=== PATIENT | male | born 1945 ===

== ENCOUNTER 2020-10-05 14:26 | Inpatient (IN) | payer OTHER, SELFPAY ==
[2020-10-05] MEDS ORDERED: Digoxin 0.5 MG/2 ML AMP ONE (15:01)
[2020-10-05] MEDS ORDERED: Enoxaparin Sodium 80 MG/0.8 ML SYRINGE ONE (15:01)
[2020-10-05] MEDS ORDERED: cefTRIAXone\\ROCEPHIN 2 GM VIAL ONE (15:02)
[2020-10-05] MEDS ORDERED: Azithromycin 500 MG VIAL ONE (15:02)
[2020-10-05 15:19] LABS: #Monocytes 1.6 10x3/uL (0.0-1.1); #Neutrophils 16.7 10x3/uL (1.5-8.4); %Basophils 0.2 % (0.0-2.0); %Eosinophils 0.1 % (0.0-6.0); %Lymphocytes 5.2 % (18.0-47.0); %Neutrophils 85.6 % (40.0-75.0); Hemoglobin 9.3 g/dL (13.5-17.5); Mean Corpuscular HGB CONC 32.4 g/dL (32.0-36.0); Mean Corpuscular Hemoglobin 31.1 pg (27.0-33.0); Mean Platelet Volume 9.7 fl (7.4-10.4); Platelet Count 279 10x3/uL (150-450); RBC Distribution Width 17.1 % (11.5-14.5); Red Blood Cell (RBC) Count 2.99 10x6/uL (4.32-5.72); White Blood Cell (WBC) Count 19.6 10x3/uL (3.5-10.5)
[2020-10-05 15:32] LABS: ALT (SGPT) 17 U/L (8-55); AST (SGOT) 26 U/L (5-34); Albumin 2.2 g/dL (3.4-4.8); Alkaline Phosphatase 79 U/L (40-110); Anion Gap 10 mmol/L (10-20); BUN (Urea Nitrogen) 23 mg/dL (8.4-25.7); Bilirubin, Total 0.8 mg/dL (0.2-1.2); Calc. Creatinine Clearance 0 mL/min (70-130); Calcium 9.2 mg/dL (7.8-10.44); Carbon Dioxide 32 mmol/L (23-31); Chloride 97 mmol/L (98-107); Globulin 3.9 g/dL (2.4-3.5); Glucose 110 mg/dL (83-110); Potassium 3.3 mmol/L (3.5-5.1); Protein, Total 6.1 g/dL (5.8-8.1); Sodium 136 mmol/L (136-145)
[2020-10-05 15:45] LABS: INR-International Normal Ratio 1.4; PTT 30.7 sec (22.0-33.0)
[2020-10-05 17:14] LABS: SARS-CoV-2 NAA Rapid Test Not Detected (NotDetected)
[2020-10-05] MEDS ORDERED: Amiodarone In Dextrose 200 ML ONE (17:53)
[2020-10-05] MEDS ORDERED: Zolpidem Tartrate 5 MG TAB PO PRN (20:13)
[2020-10-05] MEDS ORDERED: Guaifenesin DM 100-10/5 ML UDCUP PO PRN (20:13)
[2020-10-05] MEDS ORDERED: Calcium Carbonate 500 MG ChewTAB PO PRN (20:13)
[2020-10-05] MEDS ORDERED: Senokot S 8.6-50 MG TAB PO PRN (20:13)
[2020-10-05] MEDS ORDERED: Ondansetron PF 4 MG/2 ML Vial IVP PRN (20:13)
[2020-10-05] MEDS ORDERED: Amiodarone 450 MG in Dextrose 5% in Water 250 ML IVPB SCH (20:30)
[2020-10-05] MEDS ORDERED: methylPREDNISolone Sod Succ/PF 125 MG/2 ML VIAL IVP SCH (20:30)
[2020-10-05] MEDS ORDERED: Potassium Chloride 20 MEQ TAB PO SCH (20:45)
[2020-10-05] MEDS ORDERED: Vancomycin HCl 1 GM in Sodium Chloride 0.9% 250 ML 250 ML IVPB SCH (21:00)
[2020-10-05] MEDS: Albumin 25% 25 GM/100 ML BOT IVPB SCH (21:20)
[2020-10-05] MEDS: Amiodarone In Dextrose 200 ML IVPB SCH (21:42)
[2020-10-05] MEDS: Famotidine/PF 20 mg/2ml Vial SLOW IVP SCH (21:45)
[2020-10-05] MEDS: guaiFENesin ER 600 MG TAB PO SCH (21:45)
[2020-10-05] MEDS: Nicotine 21 MG PATCH TD SCH (21:45)
[2020-10-05] MEDS ORDERED: Vancomycin HCl 750 MG in Sodium Chloride 0.9% 250 ML 250 ML IVPB SCH (22:00)
[2020-10-06 00:08] LABS: Legionella Urinary Ag Negative (Negative); Strep pneumo Urine Ag NEGATIVE (NEGATIVE)
[2020-10-06] MEDS: Piperacillin/Tazobactam 3.375 GM in Sodium Chloride 0.9% 100 ML IVPB SCH ×4 (00:08→19:12)
[2020-10-06] MEDS: Albumin 25% 25 GM/100 ML BOT IVPB SCH (02:45)
[2020-10-06 04:38] LABS: ALT (SGPT) 16 U/L (8-55); AST (SGOT) 17 U/L (5-34); Albumin 2.4 g/dL (3.4-4.8); Alkaline Phosphatase 78 U/L (40-110); Anion Gap 10 mmol/L (10-20); BUN (Urea Nitrogen) 20 mg/dL (8.4-25.7); Bilirubin, Total 0.4 mg/dL (0.2-1.2); Calc. Creatinine Clearance 100 mL/min (70-130); Calcium 9.2 mg/dL (7.8-10.44); Carbon Dioxide 28 mmol/L (23-31); Chloride 101 mmol/L (98-107); Globulin 3.5 g/dL (2.4-3.5); Glucose 123 mg/dL (83-110); Iron 9 ug/dL (65-175); Iron Binding Capacity, Total 105 mcg/dL (261-462); Magnesium 1.8 mg/dL (1.6-2.6); Protein, Total 5.9 g/dL (5.8-8.1); Sodium 135 mmol/L (136-145)
[2020-10-06 04:56] LABS: Ferritin 866.04 ng/mL (22-322)
[2020-10-06 06:10] LABS: #Monocytes 0.5 10x3/uL (0.0-1.1); #Neutrophils 19.3 10x3/uL (1.5-8.4); %Basophils 0.1 % (0.0-2.0); %Lymphocytes 1.7 % (18.0-47.0); %Monocytes 2.6 % (0.0-10.0); %Neutrophils 94.9 % (40.0-75.0); Hemoglobin 8.7 g/dL (13.5-17.5); Mean Corpuscular Hemoglobin 30.4 pg (27.0-33.0); Mean Corpuscular Volume 98.3 fl (81.2-95.1); Mean Platelet Volume 9.8 fl (7.4-10.4); Platelet Count 253 10x3/uL (150-450); RBC Distribution Width 17.2 % (11.5-14.5); Red Blood Cell (RBC) Count 2.86 10x6/uL (4.32-5.72); White Blood Cell (WBC) Count 20.4 10x3/uL (3.5-10.5)
[2020-10-06] MEDS: methylPREDNISolone Sod Succ 40 MG VIAL IVP SCH ×3 (06:12→18:42)
[2020-10-06] MEDS: Amiodarone In Dextrose 200 ML IVPB SCH (06:13)
[2020-10-06] MEDS: Budesonide 0.5 MG/2 ML NEB NEB SCH ×2 (07:35→20:36)
[2020-10-06] MEDS: Famotidine/PF 20 mg/2ml Vial SLOW IVP SCH ×2 (08:05→21:42)
[2020-10-06] MEDS: Enoxaparin Sodium 80 MG/0.8 ML SYRINGE SC SCH ×2 (08:05→21:41)
[2020-10-06] MEDS: guaiFENesin ER 600 MG TAB PO SCH ×2 (08:06→23:08)
[2020-10-06] MEDS ORDERED: Ziprasidone 20 MG VIAL ONE (14:53)
[2020-10-06] MEDS ORDERED: Sterile Water 10 ML VIAL FS SCH (15:00)
[2020-10-06] MEDS ORDERED: Ziprasidone 20 MG VIAL IM SCH (15:00)
[2020-10-06] MEDS ORDERED: Amiodarone 200 MG TAB PO SCH (15:00)
[2020-10-06] MEDS ORDERED: Furosemide 40 MG/4 ML VIAL SLOW IVP SCH (15:30)
[2020-10-06] MEDS ORDERED: Azithromycin 500 MG in Sodium Chloride 0.9% 250 ML 250 ML IVPB SCH (17:00)
[2020-10-06] MEDS ORDERED: Lorazepam 2 MG/ML VIAL SLOW IVP SCH (20:45)
[2020-10-06] MEDS ORDERED: Digoxin 0.5 MG/2 ML AMP ONE (21:34)
[2020-10-06] MEDS: Nicotine 21 MG PATCH TD SCH (21:41)
[2020-10-06] MEDS: VANCOMYCIN 1.75 GM/350 ML BAG 1.75 GM in Premix Bag 1 BAG IVPB SCH (21:42)
[2020-10-07] MEDS: methylPREDNISolone Sod Succ 40 MG VIAL IVP SCH ×5 (00:13→23:41)
[2020-10-07] MEDS: Piperacillin/Tazobactam 3.375 GM in Sodium Chloride 0.9% 100 ML IVPB SCH ×4 (00:13→23:00)
[2020-10-07] MEDS ORDERED: Metoprolol Tartrate 5 MG/5 ML VIAL IVP SCH (04:15)
[2020-10-07] MEDS ORDERED: Digoxin 0.5 MG/2 ML AMP SLOW IVP SCH (04:15)
[2020-10-07] MEDS: Amiodarone 200 MG TAB PO SCH ×3 (06:25→20:23)
[2020-10-07] MEDS: Budesonide 0.5 MG/2 ML NEB NEB SCH ×2 (07:48→19:57)
[2020-10-07] MEDS: Enoxaparin Sodium 80 MG/0.8 ML SYRINGE SC SCH ×2 (08:29→20:51)
[2020-10-07] MEDS: Famotidine/PF 20 mg/2ml Vial SLOW IVP SCH ×2 (08:29→20:51)
[2020-10-07] MEDS: Furosemide 40 MG/4 ML VIAL SLOW IVP SCH (08:29)
[2020-10-07] MEDS: guaiFENesin ER 600 MG TAB PO SCH ×3 (08:30→20:27)
[2020-10-07] MEDS: Amiodarone 450 MG in Dextrose 5% in Water 250 ML IVPB SCH ×2 (15:36→21:35)
[2020-10-07] MEDS: OLANZapine 5 MG TAB PO PRN (19:14)
[2020-10-07 20:43] LABS: Vancomycin, Trough 10.4 ug/mL
[2020-10-07] MEDS: Lorazepam 2 MG/ML VIAL SLOW IVP PRN (20:51)
[2020-10-07] MEDS: Nicotine 21 MG PATCH TD SCH (20:51)
[2020-10-07] MEDS: VANCOMYCIN 1.75 GM/350 ML BAG 1.75 GM in Premix Bag 1 BAG IVPB SCH (20:52)
[2020-10-08] MEDS: Piperacillin/Tazobactam 3.375 GM in Sodium Chloride 0.9% 100 ML IVPB SCH ×3 (05:24→22:00)
[2020-10-08] MEDS: Lorazepam 2 MG/ML VIAL SLOW IVP PRN ×2 (05:29→08:48)
[2020-10-08] MEDS: methylPREDNISolone Sod Succ 40 MG VIAL IVP SCH ×3 (05:29→17:02)
[2020-10-08] MEDS: Enoxaparin Sodium 80 MG/0.8 ML SYRINGE SC SCH ×2 (08:02→20:53)
[2020-10-08] MEDS: Furosemide 40 MG/4 ML VIAL SLOW IVP SCH (08:03)
[2020-10-08] MEDS: Famotidine/PF 20 mg/2ml Vial SLOW IVP SCH ×2 (08:03→20:53)
[2020-10-08] MEDS: Budesonide 0.5 MG/2 ML NEB NEB SCH ×2 (08:20→18:47)
[2020-10-08] MEDS: Amiodarone 200 MG TAB PO SCH ×2 (08:31→19:49)
[2020-10-08] MEDS: guaiFENesin ER 600 MG TAB PO SCH ×2 (08:31→19:50)
[2020-10-08] MEDS ORDERED: Vancomycin HCl 750 MG in Sodium Chloride 0.9% 250 ML 250 ML IVPB SCH ×2 (09:00→21:00)
[2020-10-08] MEDS ORDERED: VANCOMYCIN 1.25 GM/250 ML BAG 1.25 GM in Premix Bag 1 BAG IVPB SCH (09:00)
[2020-10-08] MEDS ORDERED: Vancomycin HCl 500 MG in Sodium Chloride 0.9% 100 ML IVPB SCH ×2 (10:00→22:00)
[2020-10-08] MEDS ORDERED: Dexmedetomidine In 0.9 % NaCl 100 ML IVPB SCH (11:30)
[2020-10-08] MEDS: Amiodarone In Dextrose 200 ML IVPB SCH (16:02)
[2020-10-08] MEDS: Nicotine 21 MG PATCH TD SCH (20:54)
[2020-10-09] MEDS: methylPREDNISolone Sod Succ 40 MG VIAL IVP SCH ×3 (03:00→14:05)
[2020-10-09 04:24] LABS: #Monocytes 0.8 10x3/uL (0.0-1.1); #Neutrophils 17.3 10x3/uL (1.5-8.4); %Basophils 0.1 % (0.0-2.0); %Lymphocytes 4.1 % (18.0-47.0); %Monocytes 4.3 % (0.0-10.0); %Neutrophils 90.6 % (40.0-75.0); Hemoglobin 10.7 g/dL (13.5-17.5); Mean Corpuscular HGB CONC 30.4 g/dL (32.0-36.0); Mean Corpuscular Hemoglobin 30.4 pg (27.0-33.0); Mean Platelet Volume 11.6 fl (7.4-10.4); Platelet Count 146 10x3/uL (150-450); Red Blood Cell (RBC) Count 3.52 10x6/uL (4.32-5.72)
[2020-10-09 04:34] LABS: BUN (Urea Nitrogen) 29 mg/dL (8.4-25.7); Calc. Creatinine Clearance 99 mL/min (70-130); Calcium 9.6 mg/dL (7.8-10.44); Glucose 110 mg/dL (83-110)
[2020-10-09 04:41] LABS: Anion Gap 14 mmol/L (10-20); Carbon Dioxide 34 mmol/L (23-31); Chloride 98 mmol/L (98-107); Potassium 3.3 mmol/L (3.5-5.1); Sodium 143 mmol/L (136-145)
[2020-10-09] MEDS: Budesonide 0.5 MG/2 ML NEB NEB SCH ×2 (07:46→19:30)
[2020-10-09] MEDS: Piperacillin/Tazobactam 3.375 GM in Sodium Chloride 0.9% 100 ML IVPB SCH ×3 (08:01→22:33)
[2020-10-09] MEDS: Enoxaparin Sodium 80 MG/0.8 ML SYRINGE SC SCH ×2 (09:32→20:22)
[2020-10-09] MEDS: VANCOMYCIN 1.25 GM/250 ML BAG 1.25 GM in Premix Bag 1 BAG IVPB SCH ×3 (09:33→22:32)
[2020-10-09] MEDS: Amiodarone 200 MG TAB PO SCH ×2 (09:33→19:18)
[2020-10-09] MEDS: Furosemide 40 MG/4 ML VIAL SLOW IVP SCH (09:33)
[2020-10-09] MEDS: Famotidine/PF 20 mg/2ml Vial SLOW IVP SCH ×2 (09:33→20:39)
[2020-10-09] MEDS: guaiFENesin ER 600 MG TAB PO SCH ×2 (09:33→19:18)
[2020-10-09] MEDS ORDERED: Midazolam HCl 2 mg/2 ml Vial SLOW IVP SCH (11:00)
[2020-10-09] MEDS: Amiodarone In Dextrose 200 ML IVPB SCH (14:06)
[2020-10-09] MEDS: Nicotine 21 MG PATCH TD SCH (20:39)
[2020-10-09 22:27] LABS: Vancomycin, Trough 29.3 ug/mL
[2020-10-10 04:20] LABS: #Monocytes 1.3 10x3/uL (0.0-1.1); #Neutrophils 14.3 10x3/uL (1.5-8.4); %Basophils 0.1 % (0.0-2.0); %Lymphocytes 5.5 % (18.0-47.0); %Monocytes 7.7 % (0.0-10.0); %Neutrophils 86.1 % (40.0-75.0); Hemoglobin 10.2 g/dL (13.5-17.5); Mean Corpuscular HGB CONC 30.8 g/dL (32.0-36.0); Mean Corpuscular Hemoglobin 29.8 pg (27.0-33.0); Mean Corpuscular Volume 96.8 fl (81.2-95.1); Platelet Count 127 10x3/uL (150-450); RBC Distribution Width 16.8 % (11.5-14.5); Red Blood Cell (RBC) Count 3.42 10x6/uL (4.32-5.72); White Blood Cell (WBC) Count 16.6 10x3/uL (3.5-10.5)
[2020-10-10 04:39] LABS: BUN (Urea Nitrogen) 24 mg/dL (8.4-25.7); Calc. Creatinine Clearance 103 mL/min (70-130); Calcium 8.8 mg/dL (7.8-10.44); Glucose 104 mg/dL (83-110); Vancomycin, Random 18.9 ug/mL (See Comment)
[2020-10-10 04:45] LABS: Potassium 2.8 mmol/L (3.5-5.1)
[2020-10-10 04:46] LABS: Anion Gap 15 mmol/L (10-20); Carbon Dioxide 36 mmol/L (23-31); Chloride 95 mmol/L (98-107); Sodium 143 mmol/L (136-145)
[2020-10-10] MEDS: Piperacillin/Tazobactam 3.375 GM in Sodium Chloride 0.9% 100 ML IVPB SCH (05:26)
[2020-10-10] MEDS: Potassium Chloride 20 MEQ in Premix Bag 1 BAG IVPB SCH ×4 (05:26→15:10)
[2020-10-10] MEDS: Budesonide 0.5 MG/2 ML NEB NEB SCH ×2 (07:44→18:56)
[2020-10-10] MEDS: Enoxaparin Sodium 80 MG/0.8 ML SYRINGE SC SCH ×2 (08:42→21:06)
[2020-10-10] MEDS: Furosemide 40 MG/4 ML VIAL SLOW IVP SCH (08:42)
[2020-10-10] MEDS: guaiFENesin ER 600 MG TAB PO SCH ×2 (08:43→21:13)
[2020-10-10] MEDS: Amiodarone 200 MG TAB PO SCH ×2 (08:43→20:59)
[2020-10-10] MEDS: Famotidine/PF 20 mg/2ml Vial SLOW IVP SCH ×2 (08:43→21:03)
[2020-10-10] MEDS ORDERED: VANCOMYCIN 1.25 GM/250 ML BAG 1.25 GM in Premix Bag 1 BAG IVPB SCH (09:00)
[2020-10-10] MEDS ORDERED: methylPREDNISolone Sod Succ 40 MG VIAL IVP SCH (09:00)
[2020-10-10] MEDS ORDERED: Vancomycin HCl 1 GM in Sodium Chloride 0.9% 250 ML 250 ML IVPB SCH (09:00)
[2020-10-10] MEDS: Amiodarone In Dextrose 200 ML IVPB SCH (15:10)
[2020-10-10] MEDS: Nicotine 21 MG PATCH TD SCH (21:20)
[2020-10-11 04:25] LABS: #Monocytes 1.3 10x3/uL (0.0-1.1); %Basophils 0.1 % (0.0-2.0); %Eosinophils 0.1 % (0.0-6.0); %Lymphocytes 7.2 % (18.0-47.0); %Monocytes 7.5 % (0.0-10.0); %Neutrophils 84.5 % (40.0-75.0); Hemoglobin 10.7 g/dL (13.5-17.5); Mean Corpuscular HGB CONC 31.4 g/dL (32.0-36.0); Mean Corpuscular Hemoglobin 30.7 pg (27.0-33.0); Mean Platelet Volume 12.4 fl (7.4-10.4); Platelet Count 104 10x3/uL (150-450); RBC Distribution Width 17.5 % (11.5-14.5); Red Blood Cell (RBC) Count 3.48 10x6/uL (4.32-5.72); White Blood Cell (WBC) Count 16.6 10x3/uL (3.5-10.5)
[2020-10-11 04:40] LABS: BUN (Urea Nitrogen) 23 mg/dL (8.4-25.7); Calc. Creatinine Clearance 93 mL/min (70-130); Calcium 8.7 mg/dL (7.8-10.44); Glucose 103 mg/dL (83-110)
[2020-10-11 04:46] LABS: Anion Gap 13 mmol/L (10-20); Carbon Dioxide 39 mmol/L (23-31); Chloride 94 mmol/L (98-107); Sodium 143 mmol/L (136-145)
[2020-10-11] MEDS: Budesonide 0.5 MG/2 ML NEB NEB SCH ×2 (08:00→19:20)
[2020-10-11] MEDS: Famotidine/PF 20 mg/2ml Vial SLOW IVP SCH ×2 (08:23→20:50)
[2020-10-11] MEDS: Furosemide 40 MG/4 ML VIAL SLOW IVP SCH (08:23)
[2020-10-11] MEDS: Amiodarone 200 MG TAB PO SCH ×2 (08:24→20:49)
[2020-10-11] MEDS: guaiFENesin ER 600 MG TAB PO SCH ×2 (08:24→20:50)
[2020-10-11] MEDS: Enoxaparin Sodium 80 MG/0.8 ML SYRINGE SC SCH ×2 (08:24→20:49)
[2020-10-11] MEDS ORDERED: Dexmedetomidine In 0.9 % NaCl 100 ML IVPB SCH (10:15)
[2020-10-11] MEDS ORDERED: Dexmedetomidine In 0.9 % NaCl 100 ML ONE (10:24)
[2020-10-11 12:49] LABS: Actual Bicarbonate (HCO3a) 48.9 mEq/L (22-28); Base Excess (BEa) 22.4 mEq/L (-2.0 to +3.0); Calcium, Ionized (arterial) 1.17 mmol/L (1.12-1.30); Carboxyhemoglobin (COHb) 0.5 gm% (0.0-3.0); Hemoglobin (Hb) 11.8 g/dL (14.0-18.0); O2 Tension (PaO2), arterial 84.3 mmHg (> 70.0); Potassium - ABG Lab 2.7 mmol/L (3.70-5.30); Puncture Site RRA; pH, Arterial 7.51 (7.35-7.45)
[2020-10-11] MEDS ORDERED: Potassium Chloride 20 MEQ in Premix Bag 1 BAG IVPB SCH (14:00)
[2020-10-11] MEDS ORDERED: Albumin 25% 25 GM/100 ML BOT IVPB SCH (19:30)
[2020-10-11] MEDS: Nicotine 21 MG PATCH TD SCH (20:50)
[2020-10-11] MEDS: OLANZapine 5 MG TAB PO PRN (20:50)
[2020-10-11 21:25] LABS: Vancomycin, Trough 6.2 ug/mL
[2020-10-11] MEDS ORDERED: Albumin 25% 25 GM/100 ML BOT IVPB PRN (22:59)
[2020-10-12 04:26] LABS: #Eosinphils 0.1 10x3/uL (0.0-0.5); #Neutrophils 12.3 10x3/uL (1.5-8.4); %Basophils 0.2 % (0.0-2.0); %Eosinophils 0.6 % (0.0-6.0); %Lymphocytes 10.4 % (18.0-47.0); %Monocytes 6.3 % (0.0-10.0); %Neutrophils 81.6 % (40.0-75.0); Hemoglobin 10.4 g/dL (13.5-17.5); Mean Corpuscular HGB CONC 30.4 g/dL (32.0-36.0); Mean Corpuscular Hemoglobin 29.5 pg (27.0-33.0); Mean Corpuscular Volume 97.2 fl (81.2-95.1); Mean Platelet Volume 12.5 fl (7.4-10.4); Platelet Count 94 10x3/uL (150-450); RBC Distribution Width 17.4 % (11.5-14.5); Red Blood Cell (RBC) Count 3.52 10x6/uL (4.32-5.72)
[2020-10-12 04:32] LABS: BUN (Urea Nitrogen) 22 mg/dL (8.4-25.7); Calc. Creatinine Clearance 99 mL/min (70-130); Glucose 114 mg/dL (83-110)
[2020-10-12 04:39] LABS: Anion Gap 15 mmol/L (10-20); Carbon Dioxide 35 mmol/L (23-31); Potassium 3.2 mmol/L (3.5-5.1); Sodium 142 mmol/L (136-145)
[2020-10-12 04:42] LABS: Chloride 95 mmol/L (98-107)
[2020-10-12] MEDS: Budesonide 0.5 MG/2 ML NEB NEB SCH ×2 (07:20→20:13)
[2020-10-12] MEDS: Enoxaparin Sodium 80 MG/0.8 ML SYRINGE SC SCH ×2 (09:24→22:00)
[2020-10-12] MEDS: Famotidine/PF 20 mg/2ml Vial SLOW IVP SCH ×2 (09:24→22:00)
[2020-10-12] MEDS: Amiodarone 200 MG TAB PO SCH ×2 (09:24→22:00)
[2020-10-12] MEDS: guaiFENesin ER 600 MG TAB PO SCH ×2 (09:24→22:00)
[2020-10-12] MEDS: Polyethylene Glycol 3350 17 GM Packet PO SCH (09:26)
[2020-10-12 15:07] LABS: Bilirubin Neg (Negative); Blood, Urine 250 (Negative); Clarity Cloudy (Clear); Glucose, Urine (Dipstick) Normal (Negative); Ketone, Urine Negative (Negative); Leukocyte 100 (Negative); Nitrite Negative (Negative); Protein, Urine (Dipstick) 30 mg/dl (Neg-Trace); Urobilinogen Normal mg/dL (Less than 2)
[2020-10-12 15:09] LABS: Urine Culture Reflex No No
[2020-10-12 15:26] LABS: RBC/HPF Greater than 50 HPF (0-3)
[2020-10-12 15:27] LABS: Bacteria/HPF 1+ HPF (None Seen); Red Blood Cell Cast 0-3 LPF (None Seen); Squamous Epithelial 0-3 HPF (0-3)
[2020-10-12] MEDS ORDERED: Digoxin 0.5 MG/2 ML AMP SLOW IVP SCH (15:45)
[2020-10-12] MEDS: Nicotine 21 MG PATCH TD SCH (22:00)
[2020-10-13 03:41] LABS: #Eosinphils 0.1 10x3/uL (0.0-0.5); #Monocytes 0.8 10x3/uL (0.0-1.1); #Neutrophils 14.1 10x3/uL (1.5-8.4); %Basophils 0.1 % (0.0-2.0); %Eosinophils 0.8 % (0.0-6.0); %Lymphocytes 8.1 % (18.0-47.0); %Neutrophils 85.5 % (40.0-75.0); Hemoglobin 10.2 g/dL (13.5-17.5); Mean Corpuscular HGB CONC 31.3 g/dL (32.0-36.0); Mean Corpuscular Hemoglobin 30.7 pg (27.0-33.0); Mean Corpuscular Volume 98.2 fl (81.2-95.1); Mean Platelet Volume 11.8 fl (7.4-10.4); Platelet Count 91 10x3/uL (150-450); RBC Distribution Width 17.2 % (11.5-14.5); Red Blood Cell (RBC) Count 3.32 10x6/uL (4.32-5.72); White Blood Cell (WBC) Count 16.5 10x3/uL (3.5-10.5)
[2020-10-13 03:50] LABS: Anion Gap 11 mmol/L (10-20); BUN (Urea Nitrogen) 23 mg/dL (8.4-25.7); Calc. Creatinine Clearance 91 mL/min (70-130); Calcium 8.7 mg/dL (7.8-10.44); Carbon Dioxide 37 mmol/L (23-31); Chloride 99 mmol/L (98-107); Glucose 126 mg/dL (83-110); Potassium 3.3 mmol/L (3.5-5.1); Sodium 144 mmol/L (136-145)
[2020-10-13 04:48] LABS: ALV-art Gradient 69.385 mmHg (0-20); Actual Bicarbonate (HCO3a) 36.9 mEq/L (22-28); Base Excess (BEa) 10.7 mEq/L (-2.0 to +3.0); CO2 Tension 57.5 mmHg (35.0-45.0); Calcium, Ionized (arterial) 1.21 mmol/L (1.12-1.30); Carboxyhemoglobin (COHb) 0.6 gm% (0.0-3.0); O2 Tension (PaO2), arterial 86.9 mmHg (> 70.0); Potassium - ABG Lab 3.3 mmol/L (3.70-5.30); Puncture Site RRA; pH, Arterial 7.43 (7.35-7.45)
[2020-10-13] MEDS: Budesonide 0.5 MG/2 ML NEB NEB SCH ×2 (07:39→20:02)
[2020-10-13] MEDS: Enoxaparin Sodium 80 MG/0.8 ML SYRINGE SC SCH ×2 (07:50→21:59)
[2020-10-13] MEDS: Famotidine/PF 20 mg/2ml Vial SLOW IVP SCH ×2 (07:50→21:59)
[2020-10-13] MEDS: Digoxin 0.5 MG/2 ML AMP SLOW IVP SCH (07:51)
[2020-10-13] MEDS: guaiFENesin ER 600 MG TAB PO SCH ×2 (07:51→21:59)
[2020-10-13] MEDS: Amiodarone 200 MG TAB PO SCH ×2 (07:51→21:59)
[2020-10-13] MEDS: Polyethylene Glycol 3350 17 GM Packet PO SCH (07:52)
[2020-10-13] MEDS ORDERED: Sodium Chloride 0.9% 500 ML IV SCH (10:15)
[2020-10-13] MEDS ORDERED: Electrolyte Replacement Protocol 1 EACH FS ONE (10:15)
[2020-10-13] MEDS ORDERED: Electrolyte Replacement Protocol FS PRN (10:30)
[2020-10-13] MEDS ORDERED: Albumin 25% 25 GM/100 ML BOT IVPB PRN (10:39)
[2020-10-13] MEDS ORDERED: VANCOMYCIN 1.25 GM/250 ML BAG 1.25 GM in Premix Bag 1 BAG IVPB SCH (11:00)
[2020-10-13] MEDS ORDERED: Magnesium 2 GM/50 ML 2 GM in Premix Bag 1 BAG IVPB SCH (12:30)
[2020-10-13] MEDS ORDERED: Potassium Chloride 20 MEQ TAB PO SCH (12:30)
[2020-10-13] MEDS: Nicotine 21 MG PATCH TD SCH (21:59)
[2020-10-13] MEDS: Vancomycin HCl 1 GM in Sodium Chloride 0.9% 250 ML 250 ML IVPB SCH (23:13)
[2020-10-14 04:42] LABS: #Eosinphils 0.2 10x3/uL (0.0-0.5); #Monocytes 0.9 10x3/uL (0.0-1.1); #Neutrophils 15.2 10x3/uL (1.5-8.4); %Basophils 0.1 % (0.0-2.0); %Eosinophils 1.1 % (0.0-6.0); %Lymphocytes 6.8 % (18.0-47.0); %Monocytes 5.2 % (0.0-10.0); Hemoglobin 9.7 g/dL (13.5-17.5); Mean Corpuscular HGB CONC 30.1 g/dL (32.0-36.0); Mean Corpuscular Hemoglobin 30.2 pg (27.0-33.0); Mean Corpuscular Volume 100.3 fl (81.2-95.1); Mean Platelet Volume 12.3 fl (7.4-10.4); Platelet Count 107 10x3/uL (150-450); RBC Distribution Width 17.8 % (11.5-14.5); Red Blood Cell (RBC) Count 3.21 10x6/uL (4.32-5.72); White Blood Cell (WBC) Count 17.6 10x3/uL (3.5-10.5)
[2020-10-14 04:58] LABS: Anion Gap 13 mmol/L (10-20); BUN (Urea Nitrogen) 30 mg/dL (8.4-25.7); Calc. Creatinine Clearance 89 mL/min (70-130); Calcium 8.8 mg/dL (7.8-10.44); Carbon Dioxide 36 mmol/L (23-31); Chloride 104 mmol/L (98-107); Glucose 142 mg/dL (83-110); Potassium 3.6 mmol/L (3.5-5.1); Sodium 149 mmol/L (136-145)
[2020-10-14] MEDS: Budesonide 0.5 MG/2 ML NEB NEB SCH ×2 (06:54→19:18)
[2020-10-14] MEDS: Amiodarone 200 MG TAB PO SCH ×2 (10:05→20:25)
[2020-10-14] MEDS: Famotidine/PF 20 mg/2ml Vial SLOW IVP SCH ×2 (10:05→20:25)
[2020-10-14] MEDS: Enoxaparin Sodium 80 MG/0.8 ML SYRINGE SC SCH ×2 (10:05→20:25)
[2020-10-14] MEDS: guaiFENesin ER 600 MG TAB PO SCH ×2 (10:05→20:25)
[2020-10-14] MEDS: Digoxin 0.5 MG/2 ML AMP SLOW IVP SCH (10:05)
[2020-10-14 10:31] LABS: Vancomycin, Trough 11.4 ug/mL
[2020-10-14] MEDS ORDERED: Piperacillin/Tazobactam 3.375 GM in Sodium Chloride 0.9% 100 ML IVPB SCH ×2 (12:00→16:00)
[2020-10-14] MEDS: Polyethylene Glycol 3350 17 GM Packet PO SCH (12:08)
[2020-10-14] MEDS: Vancomycin HCl 1 GM in Sodium Chloride 0.9% 250 ML 250 ML IVPB SCH (12:16)
[2020-10-14] MEDS: Lorazepam 2 MG/ML VIAL SLOW IVP PRN (14:16)
[2020-10-14] MEDS: Nicotine 21 MG PATCH TD SCH (20:34)
[2020-10-15] MEDS: Vancomycin HCl 1 GM in Sodium Chloride 0.9% 250 ML 250 ML IVPB SCH ×2 (00:20→10:50)
[2020-10-15] MEDS: Lorazepam 2 MG/ML VIAL SLOW IVP PRN (00:52)
[2020-10-15] MEDS ORDERED: Piperacillin/Tazobactam 3.375 GM in Sodium Chloride 0.9% 100 ML IVPB SCH (03:00)
[2020-10-15 04:32] LABS: #Eosinphils 0.1 10x3/uL (0.0-0.5); #Monocytes 1.1 10x3/uL (0.0-1.1); #Neutrophils 15.9 10x3/uL (1.5-8.4); %Basophils 0.2 % (0.0-2.0); %Eosinophils 0.7 % (0.0-6.0); %Lymphocytes 7.2 % (18.0-47.0); %Monocytes 5.6 % (0.0-10.0); %Neutrophils 85.4 % (40.0-75.0); Hemoglobin 9.9 g/dL (13.5-17.5); Mean Corpuscular HGB CONC 30.4 g/dL (32.0-36.0); Mean Corpuscular Hemoglobin 30.2 pg (27.0-33.0); Mean Corpuscular Volume 99.4 fl (81.2-95.1); Mean Platelet Volume 11.5 fl (7.4-10.4); Platelet Count 126 10x3/uL (150-450); RBC Distribution Width 17.7 % (11.5-14.5); Red Blood Cell (RBC) Count 3.28 10x6/uL (4.32-5.72); White Blood Cell (WBC) Count 18.7 10x3/uL (3.5-10.5)
[2020-10-15 04:45] LABS: Anion Gap 9 mmol/L (10-20); BUN (Urea Nitrogen) 28 mg/dL (8.4-25.7); Calc. Creatinine Clearance 92 mL/min (70-130); Calcium 8.8 mg/dL (7.8-10.44); Carbon Dioxide 37 mmol/L (23-31); Chloride 108 mmol/L (98-107); Glucose 133 mg/dL (83-110); Potassium 3.5 mmol/L (3.5-5.1); Sodium 150 mmol/L (136-145)
[2020-10-15] MEDS: Budesonide 0.5 MG/2 ML NEB NEB SCH ×2 (06:59→19:07)
[2020-10-15] MEDS: Famotidine/PF 20 mg/2ml Vial SLOW IVP SCH ×2 (08:44→20:15)
[2020-10-15] MEDS: guaiFENesin ER 600 MG TAB PO SCH ×2 (08:44→20:15)
[2020-10-15] MEDS: Enoxaparin Sodium 80 MG/0.8 ML SYRINGE SC SCH ×2 (08:44→20:14)
[2020-10-15] MEDS: Amiodarone 200 MG TAB PO SCH ×3 (08:45→20:14)
[2020-10-15] MEDS: Digoxin 0.5 MG/2 ML AMP SLOW IVP SCH (08:45)
[2020-10-15] MEDS: Polyethylene Glycol 3350 17 GM Packet PO SCH (08:46)
[2020-10-15] MEDS ORDERED: Potassium Chloride 20 MEQ TAB PO SCH (09:30)
[2020-10-15 10:47] LABS: Vancomycin, Trough 15.3 ug/mL
[2020-10-15] MEDS: Piperacillin/Tazobactam 3.375 GM in Sodium Chloride 0.9% 100 ML IVPB SCH ×2 (11:36→20:13)
[2020-10-15] MEDS: Dextrose 5% in Water 1,000 ML IV SCH (16:52)
[2020-10-15] MEDS: Nicotine 21 MG PATCH TD SCH (20:15)
[2020-10-16] MEDS: Vancomycin HCl 1 GM in Sodium Chloride 0.9% 250 ML 250 ML IVPB SCH (00:21)
[2020-10-16] MEDS: Piperacillin/Tazobactam 3.375 GM in Sodium Chloride 0.9% 100 ML IVPB SCH (04:10)
[2020-10-16 04:20] LABS: Hemoglobin 8.7 g/dL (13.5-17.5); Mean Corpuscular HGB CONC 29.7 g/dL (32.0-36.0); Mean Corpuscular Hemoglobin 29.9 pg (27.0-33.0); Mean Corpuscular Volume 100.7 fl (81.2-95.1); Platelet Count 131 10x3/uL (150-450); RBC Distribution Width 17.8 % (11.5-14.5); Red Blood Cell (RBC) Count 2.91 10x6/uL (4.32-5.72); White Blood Cell (WBC) Count 23.9 10x3/uL (3.5-10.5)
[2020-10-16 04:29] LABS: MDiff Complete? YES
[2020-10-16 04:31] LABS: Eosinophils 1 % (0-10); Lymphocytes 5 % (21-51); Monocytes 3 % (0-10); Neutrophil 91 % (42-75)
[2020-10-16 04:32] LABS: Hypochromia SLIGHT = 6-15 cells (100X) (0-5/hpf)
[2020-10-16 04:52] LABS: Anion Gap 10 mmol/L (10-20); BUN (Urea Nitrogen) 29 mg/dL (8.4-25.7); Calc. Creatinine Clearance 83 mL/min (70-130); Calcium 8.6 mg/dL (7.8-10.44); Carbon Dioxide 35 mmol/L (23-31); Chloride 108 mmol/L (98-107); Glucose 115 mg/dL (83-110); Potassium 3.7 mmol/L (3.5-5.1); Sodium 149 mmol/L (136-145)
[2020-10-16] MEDS: Budesonide 0.5 MG/2 ML NEB NEB SCH ×2 (06:56→19:05)
[2020-10-16] MEDS: Digoxin 0.5 MG/2 ML AMP SLOW IVP SCH (08:03)
[2020-10-16] MEDS: guaiFENesin ER 600 MG TAB PO SCH ×2 (08:03→21:01)
[2020-10-16] MEDS: Famotidine/PF 20 mg/2ml Vial SLOW IVP SCH ×2 (08:03→21:04)
[2020-10-16] MEDS: Amiodarone 200 MG TAB PO SCH ×3 (08:03→21:01)
[2020-10-16] MEDS: Enoxaparin Sodium 80 MG/0.8 ML SYRINGE SC SCH (08:04)
[2020-10-16] MEDS: Dextrose 5% in Water 1,000 ML IV SCH ×2 (08:05→17:19)
[2020-10-16] MEDS: Polyethylene Glycol 3350 17 GM Packet PO SCH (08:06)
[2020-10-16] MEDS: metroNIDAZOLE 500 MG in Premix Bag 1 BAG IVPB SCH ×2 (08:57→16:17)
[2020-10-16] MEDS: Ampicillin/Sulbactam 3 GM in Sodium Chloride 0.9% 100 ML IVPB SCH ×3 (09:53→21:03)
[2020-10-16] MEDS: Lorazepam 2 MG/ML VIAL SLOW IVP PRN (10:13)
[2020-10-16] MEDS: Nicotine 21 MG PATCH TD SCH (21:03)
[2020-10-17] MEDS: metroNIDAZOLE 500 MG in Premix Bag 1 BAG IVPB SCH ×3 (00:56→16:03)
[2020-10-17] MEDS: Ampicillin/Sulbactam 3 GM in Sodium Chloride 0.9% 100 ML IVPB SCH ×4 (04:11→21:45)
[2020-10-17 04:57] LABS: #Eosinphils 0.1 10x3/uL (0.0-0.5); #Monocytes 1.3 10x3/uL (0.0-1.1); #Neutrophils 13.3 10x3/uL (1.5-8.4); %Basophils 0.2 % (0.0-2.0); %Eosinophils 0.9 % (0.0-6.0); %Lymphocytes 8.7 % (18.0-47.0); %Monocytes 7.7 % (0.0-10.0); %Neutrophils 81.8 % (40.0-75.0); Hemoglobin 9.2 g/dL (13.5-17.5); Mean Corpuscular HGB CONC 30.5 g/dL (32.0-36.0); Mean Corpuscular Volume 98.4 fl (81.2-95.1); Mean Platelet Volume 11.4 fl (7.4-10.4); Platelet Count 149 10x3/uL (150-450); RBC Distribution Width 17.9 % (11.5-14.5); Red Blood Cell (RBC) Count 3.07 10x6/uL (4.32-5.72); White Blood Cell (WBC) Count 16.3 10x3/uL (3.5-10.5)
[2020-10-17 05:09] LABS: Anion Gap 10 mmol/L (10-20); BUN (Urea Nitrogen) 26 mg/dL (8.4-25.7); Calc. Creatinine Clearance 85 mL/min (70-130); Calcium 8.7 mg/dL (7.8-10.44); Carbon Dioxide 35 mmol/L (23-31); Chloride 106 mmol/L (98-107); Glucose 106 mg/dL (83-110); Potassium 3.4 mmol/L (3.5-5.1); Sodium 148 mmol/L (136-145)
[2020-10-17 05:38] LABS: HIV (1/2) Antibody/Antigen Non-Reactive (NonReactive); HIV 1/2 INDEX 0.05 S/CO (<1.00)
[2020-10-17] MEDS: Dextrose 5% in Water 1,000 ML IV SCH ×2 (05:48→21:45)
[2020-10-17] MEDS: Budesonide 0.5 MG/2 ML NEB NEB SCH ×2 (07:20→19:08)
[2020-10-17] MEDS: Famotidine/PF 20 mg/2ml Vial SLOW IVP SCH ×2 (08:22→21:44)
[2020-10-17] MEDS: Amiodarone 200 MG TAB PO SCH ×3 (08:22→21:44)
[2020-10-17] MEDS: guaiFENesin ER 600 MG TAB PO SCH ×2 (08:22→21:45)
[2020-10-17] MEDS: Digoxin 0.5 MG/2 ML AMP SLOW IVP SCH (08:25)
[2020-10-17] MEDS: Polyethylene Glycol 3350 17 GM Packet PO SCH (08:25)
[2020-10-17 11:48] LABS: Hep C IgG Ab Non-Reactive (NonReactive); Hep C Index 0.12 S/CO (0-0.79)
[2020-10-17] MEDS: Nicotine 21 MG PATCH TD SCH (21:45)
[2020-10-18] MEDS: metroNIDAZOLE 500 MG in Premix Bag 1 BAG IVPB SCH ×3 (01:30→15:58)
[2020-10-18] MEDS: Lorazepam 2 MG/ML VIAL SLOW IVP PRN (02:10)
[2020-10-18] MEDS: Ampicillin/Sulbactam 3 GM in Sodium Chloride 0.9% 100 ML IVPB SCH ×5 (04:28→22:05)
[2020-10-18 04:36] LABS: #Eosinphils 0.2 10x3/uL (0.0-0.5); #Monocytes 1.4 10x3/uL (0.0-1.1); #Neutrophils 12.8 10x3/uL (1.5-8.4); %Basophils 0.2 % (0.0-2.0); %Eosinophils 1.1 % (0.0-6.0); %Lymphocytes 7.7 % (18.0-47.0); %Monocytes 8.6 % (0.0-10.0); %Neutrophils 81.4 % (40.0-75.0); Hemoglobin 8.6 g/dL (13.5-17.5); Mean Corpuscular HGB CONC 30.9 g/dL (32.0-36.0); Mean Corpuscular Hemoglobin 30.5 pg (27.0-33.0); Mean Corpuscular Volume 98.6 fl (81.2-95.1); Mean Platelet Volume 11.3 fl (7.4-10.4); Platelet Count 151 10x3/uL (150-450); RBC Distribution Width 17.7 % (11.5-14.5); Red Blood Cell (RBC) Count 2.82 10x6/uL (4.32-5.72); White Blood Cell (WBC) Count 15.8 10x3/uL (3.5-10.5)
[2020-10-18 04:48] LABS: Anion Gap 8 mmol/L (10-20); BUN (Urea Nitrogen) 25 mg/dL (8.4-25.7); Calc. Creatinine Clearance 95 mL/min (70-130); Calcium 8.5 mg/dL (7.8-10.44); Carbon Dioxide 36 mmol/L (23-31); Chloride 107 mmol/L (98-107); Glucose 113 mg/dL (83-110); Potassium 3.6 mmol/L (3.5-5.1); Sodium 147 mmol/L (136-145)
[2020-10-18] MEDS: Budesonide 0.5 MG/2 ML NEB NEB SCH ×2 (08:28→19:14)
[2020-10-18] MEDS ORDERED: Sodium Chloride 0.9% 500 ML IV SCH (11:15)
[2020-10-18] MEDS: Famotidine/PF 20 mg/2ml Vial SLOW IVP SCH ×3 (11:17→22:05)
[2020-10-18] MEDS: guaiFENesin ER 600 MG TAB PO SCH ×2 (11:17→21:08)
[2020-10-18] MEDS: Digoxin 0.5 MG/2 ML AMP SLOW IVP SCH (11:17)
[2020-10-18] MEDS: Dextrose 5% in Water 1,000 ML IV SCH ×2 (11:18→15:07)
[2020-10-18] MEDS: Amiodarone 200 MG TAB PO SCH ×4 (11:18→21:08)
[2020-10-18] MEDS: Polyethylene Glycol 3350 17 GM Packet PO SCH (11:52)
[2020-10-18] MEDS: Norepinephrine 8 MG/0.9% NS 250 ML IVPB SCH (12:56)
[2020-10-18] MEDS: Nicotine 21 MG PATCH TD SCH (22:00)
[2020-10-19] MEDS: Lorazepam 2 MG/ML VIAL SLOW IVP PRN (01:00)
[2020-10-19] MEDS ORDERED: Sterile Water 10 ML VIAL FS PRN (01:30)
[2020-10-19] MEDS ORDERED: Ziprasidone 20 MG VIAL IM SCH (01:30)
[2020-10-19] MEDS ORDERED: Ziprasidone 20 MG VIAL ONE (01:44)
[2020-10-19] MEDS: metroNIDAZOLE 500 MG in Premix Bag 1 BAG IVPB SCH ×3 (02:30→16:45)
[2020-10-19] MEDS: Dextrose 5% in Water 1,000 ML IV SCH ×4 (02:50→20:10)
[2020-10-19] MEDS: Ampicillin/Sulbactam 3 GM in Sodium Chloride 0.9% 100 ML IVPB SCH ×4 (04:00→22:10)
[2020-10-19] MEDS: Budesonide 0.5 MG/2 ML NEB NEB SCH ×2 (06:58→23:25)
[2020-10-19 07:34] LABS: Anion Gap 11 mmol/L (10-20); BUN (Urea Nitrogen) 20 mg/dL (8.4-25.7); Calc. Creatinine Clearance 90 mL/min (70-130); Calcium 8.3 mg/dL (7.8-10.44); Carbon Dioxide 31 mmol/L (23-31); Chloride 104 mmol/L (98-107); Glucose 115 mg/dL (83-110); Potassium 3.6 mmol/L (3.5-5.1); Sodium 142 mmol/L (136-145)
[2020-10-19] MEDS ORDERED: Famotidine/PF 20 mg/2ml Vial ONE (08:06)
[2020-10-19] MEDS: Famotidine/PF 20 mg/2ml Vial SLOW IVP SCH ×2 (08:17→20:12)
[2020-10-19] MEDS: Digoxin 0.5 MG/2 ML AMP SLOW IVP SCH (08:17)
[2020-10-19] MEDS: Amiodarone 200 MG TAB PO SCH ×5 (08:17→20:12)
[2020-10-19] MEDS: guaiFENesin ER 600 MG TAB PO SCH ×4 (08:18→20:12)
[2020-10-19] MEDS: Polyethylene Glycol 3350 17 GM Packet PO SCH (08:18)
[2020-10-19 09:24] LABS: #Basophils 0.1 10x3/uL (0.0-0.2); #Eosinphils 0.1 10x3/uL (0.0-0.5); #Monocytes 1.4 10x3/uL (0.0-1.1); #Neutrophils 14.6 10x3/uL (1.5-8.4); %Basophils 0.3 % (0.0-2.0); %Eosinophils 0.5 % (0.0-6.0); %Lymphocytes 6.4 % (18.0-47.0); %Monocytes 7.9 % (0.0-10.0); %Neutrophils 84.2 % (40.0-75.0); Hemoglobin 8.5 g/dL (13.5-17.5); Mean Corpuscular HGB CONC 31.4 g/dL (32.0-36.0); Mean Corpuscular Hemoglobin 30.4 pg (27.0-33.0); Mean Corpuscular Volume 96.8 fl (81.2-95.1); Mean Platelet Volume 11.4 fl (7.4-10.4); Platelet Count 168 10x3/uL (150-450); RBC Distribution Width 17.2 % (11.5-14.5); White Blood Cell (WBC) Count 17.3 10x3/uL (3.5-10.5)
[2020-10-19 11:49] LABS: Reference Lab Name KARIUS
[2020-10-19] MEDS ORDERED: Sodium Chloride 0.9% 100 ML ONE (16:38)
[2020-10-19] MEDS: Ziprasidone 20 MG CAP PO SCH (20:12)
[2020-10-19] MEDS: Nicotine 21 MG PATCH TD SCH (20:12)
[2020-10-19] MEDS: Norepinephrine 8 MG/0.9% NS 250 ML IVPB SCH (23:27)
[2020-10-20] MEDS: metroNIDAZOLE 500 MG in Premix Bag 1 BAG IVPB SCH ×3 (01:30→16:16)
[2020-10-20] MEDS: Dextrose 5% in Water 1,000 ML IV SCH ×2 (02:40→09:30)
[2020-10-20] MEDS: Ampicillin/Sulbactam 3 GM in Sodium Chloride 0.9% 100 ML IVPB SCH ×4 (05:00→22:00)
[2020-10-20] MEDS: Budesonide 0.5 MG/2 ML NEB NEB SCH ×2 (06:52→20:45)
[2020-10-20 08:40] LABS: QuantiFERON-TB Gold Plus Negative (Negative)
[2020-10-20] MEDS: guaiFENesin ER 600 MG TAB PO SCH ×2 (09:39→19:23)
[2020-10-20] MEDS: Amiodarone 200 MG TAB PO SCH ×3 (09:39→19:23)
[2020-10-20] MEDS: Famotidine/PF 20 mg/2ml Vial SLOW IVP SCH ×2 (09:39→19:24)
[2020-10-20] MEDS: Digoxin 0.5 MG/2 ML AMP SLOW IVP SCH (09:39)
[2020-10-20] MEDS: Polyethylene Glycol 3350 17 GM Packet PO SCH (09:41)
[2020-10-20] MEDS ORDERED: Amiodarone 200 MG TAB ONE (14:14)
[2020-10-20] MEDS: Sodium Chloride 0.9% 1,000 ML IV SCH (15:35)
[2020-10-20] MEDS: Ziprasidone 20 MG CAP PO SCH (19:23)
[2020-10-20] MEDS: Nicotine 21 MG PATCH TD SCH (19:23)
[2020-10-21] MEDS: metroNIDAZOLE 500 MG in Premix Bag 1 BAG IVPB SCH ×3 (01:45→16:19)
[2020-10-21] MEDS: Sodium Chloride 0.9% 1,000 ML IV SCH (01:45)
[2020-10-21] MEDS: Ampicillin/Sulbactam 3 GM in Sodium Chloride 0.9% 100 ML IVPB SCH ×4 (04:00→22:14)
[2020-10-21 04:29] LABS: #Basophils 0.1 10x3/uL (0.0-0.2); #Eosinphils 0.1 10x3/uL (0.0-0.5); #Monocytes 1.1 10x3/uL (0.0-1.1); #Neutrophils 11.5 10x3/uL (1.5-8.4); %Basophils 0.5 % (0.0-2.0); %Eosinophils 0.7 % (0.0-6.0); %Lymphocytes 7.3 % (18.0-47.0); %Monocytes 7.9 % (0.0-10.0); %Neutrophils 82.9 % (40.0-75.0); Hemoglobin 7.4 g/dL (13.5-17.5); Mean Corpuscular HGB CONC 31.4 g/dL (32.0-36.0); Mean Corpuscular Hemoglobin 30.1 pg (27.0-33.0); Mean Corpuscular Volume 95.9 fl (81.2-95.1); Mean Platelet Volume 11.5 fl (7.4-10.4); Platelet Count 171 10x3/uL (150-450); RBC Distribution Width 17.3 % (11.5-14.5); Red Blood Cell (RBC) Count 2.46 10x6/uL (4.32-5.72); White Blood Cell (WBC) Count 13.8 10x3/uL (3.5-10.5)
[2020-10-21 04:32] LABS: Anion Gap 9 mmol/L (10-20); BUN (Urea Nitrogen) 14 mg/dL (8.4-25.7); Calc. Creatinine Clearance 92 mL/min (70-130); Carbon Dioxide 28 mmol/L (23-31); Chloride 103 mmol/L (98-107); Glucose 111 mg/dL (83-110); Potassium 3.1 mmol/L (3.5-5.1); Sodium 137 mmol/L (136-145)
[2020-10-21] MEDS: Budesonide 0.5 MG/2 ML NEB NEB SCH ×2 (06:48→19:50)
[2020-10-21] MEDS: Digoxin 0.5 MG/2 ML AMP SLOW IVP SCH (08:42)
[2020-10-21] MEDS: Amiodarone 200 MG TAB PO SCH ×3 (08:42→20:27)
[2020-10-21] MEDS: guaiFENesin ER 600 MG TAB PO SCH ×2 (08:42→20:27)
[2020-10-21] MEDS: Polyethylene Glycol 3350 17 GM Packet PO SCH (08:43)
[2020-10-21] MEDS: Famotidine/PF 20 mg/2ml Vial SLOW IVP SCH ×2 (08:43→20:27)
[2020-10-21] MEDS ORDERED: Potassium Chloride 20 MEQ TAB PO SCH (16:15)
[2020-10-21] MEDS: Lorazepam 2 MG/ML VIAL SLOW IVP PRN (16:57)
[2020-10-21] MEDS: Nicotine 21 MG PATCH TD SCH (20:27)
[2020-10-21] MEDS: Ziprasidone 20 MG CAP PO SCH (20:27)
[2020-10-22] MEDS: metroNIDAZOLE 500 MG in Premix Bag 1 BAG IVPB SCH ×3 (01:00→14:50)
[2020-10-22] MEDS: Ampicillin/Sulbactam 3 GM in Sodium Chloride 0.9% 100 ML IVPB SCH ×4 (03:28→21:42)
[2020-10-22 03:49] LABS: Anion Gap 11 mmol/L (10-20); BUN (Urea Nitrogen) 13 mg/dL (8.4-25.7); Calc. Creatinine Clearance 91 mL/min (70-130); Calcium 7.9 mg/dL (7.8-10.44); Carbon Dioxide 26 mmol/L (23-31); Chloride 106 mmol/L (98-107); Glucose 96 mg/dL (83-110); Potassium 3.2 mmol/L (3.5-5.1); Sodium 140 mmol/L (136-145)
[2020-10-22 04:35] LABS: #Eosinphils 0.1 10x3/uL (0.0-0.5); #Monocytes 0.7 10x3/uL (0.0-1.1); #Neutrophils 9.9 10x3/uL (1.5-8.4); %Basophils 0.3 % (0.0-2.0); %Eosinophils 0.6 % (0.0-6.0); %Lymphocytes 6.9 % (18.0-47.0); %Monocytes 6.3 % (0.0-10.0); %Neutrophils 85.3 % (40.0-75.0); Hemoglobin 6.9 g/dL (13.5-17.5); Mean Corpuscular HGB CONC 31.2 g/dL (32.0-36.0); Mean Corpuscular Hemoglobin 30.5 pg (27.0-33.0); Mean Corpuscular Volume 97.8 fl (81.2-95.1); Mean Platelet Volume 10.9 fl (7.4-10.4); Platelet Count 153 10x3/uL (150-450); RBC Distribution Width 17.6 % (11.5-14.5); Red Blood Cell (RBC) Count 2.26 10x6/uL (4.32-5.72); White Blood Cell (WBC) Count 11.6 10x3/uL (3.5-10.5)
[2020-10-22] MEDS: Budesonide 0.5 MG/2 ML NEB NEB SCH ×2 (06:53→19:29)
[2020-10-22] MEDS: guaiFENesin ER 600 MG TAB PO SCH ×2 (07:50→20:22)
[2020-10-22] MEDS: Digoxin 0.5 MG/2 ML AMP SLOW IVP SCH (07:50)
[2020-10-22] MEDS: Amiodarone 200 MG TAB PO SCH ×3 (07:50→20:22)
[2020-10-22] MEDS: Famotidine/PF 20 mg/2ml Vial SLOW IVP SCH ×2 (07:50→20:22)
[2020-10-22] MEDS: Polyethylene Glycol 3350 17 GM Packet PO SCH (07:53)
[2020-10-22] MEDS ORDERED: Potassium Chloride 20 MEQ TAB PO SCH (08:30)
[2020-10-22] MEDS ORDERED: OLANZapine 2.5 MG TAB PO SCH (11:45)
[2020-10-22] MEDS: Haloperidol Lactate 5 MG/ML VIAL IM PRN ×2 (15:39→22:37)
[2020-10-22] MEDS: Mirtazapine 15 MG TAB PO SCH (20:22)
[2020-10-22] MEDS: Nicotine 21 MG PATCH TD SCH (20:23)
[2020-10-23] MEDS: metroNIDAZOLE 500 MG in Premix Bag 1 BAG IVPB SCH ×3 (01:40→17:23)
[2020-10-23 04:03] LABS: #Basophils 0.1 10x3/uL (0.0-0.2); #Monocytes 0.8 10x3/uL (0.0-1.1); #Neutrophils 9.6 10x3/uL (1.5-8.4); %Basophils 0.4 % (0.0-2.0); %Eosinophils 0.3 % (0.0-6.0); %Lymphocytes 7.1 % (18.0-47.0); %Monocytes 6.9 % (0.0-10.0); %Neutrophils 84.6 % (40.0-75.0); Hemoglobin 8.5 g/dL (13.5-17.5); Mean Corpuscular Hemoglobin 30.4 pg (27.0-33.0); Mean Platelet Volume 10.5 fl (7.4-10.4); Platelet Count 162 10x3/uL (150-450); RBC Distribution Width 17.2 % (11.5-14.5); White Blood Cell (WBC) Count 11.3 10x3/uL (3.5-10.5)
[2020-10-23 04:22] LABS: Anion Gap 14 mmol/L (10-20); BUN (Urea Nitrogen) 11 mg/dL (8.4-25.7); Calc. Creatinine Clearance 95 mL/min (70-130); Calcium 8.2 mg/dL (7.8-10.44); Carbon Dioxide 24 mmol/L (23-31); Chloride 105 mmol/L (98-107); Glucose 97 mg/dL (83-110); Potassium 3.3 mmol/L (3.5-5.1); Sodium 140 mmol/L (136-145)
[2020-10-23] MEDS: Ampicillin/Sulbactam 3 GM in Sodium Chloride 0.9% 100 ML IVPB SCH ×4 (04:59→22:11)
[2020-10-23] MEDS: Haloperidol Lactate 5 MG/ML VIAL IM PRN ×2 (05:55→10:00)
[2020-10-23] MEDS: Budesonide 0.5 MG/2 ML NEB NEB SCH ×2 (07:04→18:48)
[2020-10-23] MEDS ORDERED: Potassium Chloride 20 MEQ TAB PO SCH (07:45)
[2020-10-23] MEDS: Digoxin 0.5 MG/2 ML AMP SLOW IVP SCH (08:30)
[2020-10-23] MEDS: Famotidine/PF 20 mg/2ml Vial SLOW IVP SCH ×2 (08:30→19:53)
[2020-10-23] MEDS: Amiodarone 200 MG TAB PO SCH ×3 (08:31→19:53)
[2020-10-23] MEDS: guaiFENesin ER 600 MG TAB PO SCH ×2 (08:31→19:53)
[2020-10-23] MEDS: Polyethylene Glycol 3350 17 GM Packet PO SCH (08:31)
[2020-10-23] MEDS: OLANZapine 2.5 MG TAB PO SCH (08:35)
[2020-10-23] MEDS: Melatonin 3 MG TAB PO SCH (19:53)
[2020-10-23] MEDS: Mirtazapine 15 MG TAB PO SCH (19:54)
[2020-10-23] MEDS: Nicotine 21 MG PATCH TD SCH (19:55)
[2020-10-24] MEDS: metroNIDAZOLE 500 MG in Premix Bag 1 BAG IVPB SCH ×3 (00:49→16:06)
[2020-10-24] MEDS: Ampicillin/Sulbactam 3 GM in Sodium Chloride 0.9% 100 ML IVPB SCH ×4 (05:13→22:03)
[2020-10-24] MEDS: Budesonide 0.5 MG/2 ML NEB NEB SCH ×2 (07:10→19:28)
[2020-10-24] MEDS: Polyethylene Glycol 3350 17 GM Packet PO SCH (08:05)
[2020-10-24] MEDS: Digoxin 0.5 MG/2 ML AMP SLOW IVP SCH (08:05)
[2020-10-24] MEDS: OLANZapine 2.5 MG TAB PO SCH (08:05)
[2020-10-24] MEDS: Famotidine/PF 20 mg/2ml Vial SLOW IVP SCH ×2 (08:05→19:26)
[2020-10-24] MEDS: guaiFENesin ER 600 MG TAB PO SCH ×2 (08:05→19:27)
[2020-10-24] MEDS: Amiodarone 200 MG TAB PO SCH ×3 (08:06→19:26)
[2020-10-24] MEDS: Enoxaparin Sodium 80 MG/0.8 ML SYRINGE SC SCH (19:26)
[2020-10-24] MEDS: Mirtazapine 15 MG TAB PO SCH (19:27)
[2020-10-24] MEDS: Melatonin 3 MG TAB PO SCH (19:27)
[2020-10-24] MEDS: Nicotine 21 MG PATCH TD SCH (19:27)
[2020-10-25] MEDS: metroNIDAZOLE 500 MG in Premix Bag 1 BAG IVPB SCH ×3 (00:47→18:30)
[2020-10-25] MEDS: Ampicillin/Sulbactam 3 GM in Sodium Chloride 0.9% 100 ML IVPB SCH ×4 (04:09→21:36)
[2020-10-25] MEDS: Budesonide 0.5 MG/2 ML NEB NEB SCH ×2 (07:00→19:30)
[2020-10-25 08:18] LABS: #Basophils 0.1 10x3/uL (0.0-0.2); #Eosinphils 0.1 10x3/uL (0.0-0.5); #Monocytes 0.7 10x3/uL (0.0-1.1); #Neutrophils 7.1 10x3/uL (1.5-8.4); %Basophils 0.6 % (0.0-2.0); %Lymphocytes 11.8 % (18.0-47.0); %Monocytes 8.1 % (0.0-10.0); %Neutrophils 78.1 % (40.0-75.0); Mean Corpuscular HGB CONC 31.8 g/dL (32.0-36.0); Mean Corpuscular Hemoglobin 30.7 pg (27.0-33.0); Mean Corpuscular Volume 96.6 fl (81.2-95.1); Mean Platelet Volume 10.8 fl (7.4-10.4); Platelet Count 162 10x3/uL (150-450); RBC Distribution Width 18.2 % (11.5-14.5); Red Blood Cell (RBC) Count 2.93 10x6/uL (4.32-5.72)
[2020-10-25 08:46] LABS: ALT (SGPT) 10 U/L (8-55); AST (SGOT) 12 U/L (5-34); Albumin 1.9 g/dL (3.4-4.8); Alkaline Phosphatase 43 U/L (40-110); Anion Gap 13 mmol/L (10-20); BUN (Urea Nitrogen) 10 mg/dL (8.4-25.7); Bilirubin, Total 0.5 mg/dL (0.2-1.2); Calc. Creatinine Clearance 95 mL/min (70-130); Carbon Dioxide 27 mmol/L (23-31); Chloride 106 mmol/L (98-107); Glucose 96 mg/dL (83-110); Potassium 3.2 mmol/L (3.5-5.1); Protein, Total 4.9 g/dL (5.8-8.1); Sodium 143 mmol/L (136-145)
[2020-10-25] MEDS: Enoxaparin Sodium 80 MG/0.8 ML SYRINGE SC SCH ×2 (09:03→21:34)
[2020-10-25] MEDS: Digoxin 0.5 MG/2 ML AMP SLOW IVP SCH (09:05)
[2020-10-25] MEDS: Famotidine/PF 20 mg/2ml Vial SLOW IVP SCH ×2 (09:06→21:34)
[2020-10-25] MEDS: guaiFENesin ER 600 MG TAB PO SCH ×2 (09:07→21:34)
[2020-10-25] MEDS: Amiodarone 200 MG TAB PO SCH ×3 (09:07→21:34)
[2020-10-25] MEDS: Polyethylene Glycol 3350 17 GM Packet PO SCH (09:07)
[2020-10-25] MEDS: OLANZapine 2.5 MG TAB PO SCH (09:55)
[2020-10-25] MEDS ORDERED: Potassium Chloride 20 MEQ TAB PO SCH (14:15)
[2020-10-25] MEDS ORDERED: Sodium Chloride 0.9% 100 ML ONE (21:21)
[2020-10-25] MEDS: Mirtazapine 15 MG TAB PO SCH (21:34)
[2020-10-25] MEDS: Melatonin 3 MG TAB PO SCH (21:34)
[2020-10-25] MEDS: Nicotine 21 MG PATCH TD SCH (22:03)
[2020-10-26] MEDS: metroNIDAZOLE 500 MG in Premix Bag 1 BAG IVPB SCH ×3 (01:17→18:30)
[2020-10-26] MEDS: Ampicillin/Sulbactam 3 GM in Sodium Chloride 0.9% 100 ML IVPB SCH ×4 (04:14→22:02)
[2020-10-26] MEDS: Budesonide 0.5 MG/2 ML NEB NEB SCH ×2 (07:23→10:20)
[2020-10-26] MEDS ORDERED: Potassium Chloride 20 MEQ TAB PO SCH (07:30)
[2020-10-26] MEDS: Enoxaparin Sodium 80 MG/0.8 ML SYRINGE SC SCH ×2 (09:04→20:27)
[2020-10-26] MEDS: Famotidine/PF 20 mg/2ml Vial SLOW IVP SCH ×2 (09:05→20:26)
[2020-10-26] MEDS: Digoxin 0.5 MG/2 ML AMP SLOW IVP SCH (09:05)
[2020-10-26] MEDS: Amiodarone 200 MG TAB PO SCH ×3 (09:07→20:25)
[2020-10-26] MEDS: OLANZapine 2.5 MG TAB PO SCH (09:07)
[2020-10-26] MEDS: guaiFENesin ER 600 MG TAB PO SCH ×2 (09:07→20:26)
[2020-10-26] MEDS: Polyethylene Glycol 3350 17 GM Packet PO SCH (09:08)
[2020-10-26] MEDS: Acetaminophen 325 MG TAB PO PRN (20:25)
[2020-10-26] MEDS: Melatonin 3 MG TAB PO SCH (20:26)
[2020-10-26] MEDS: Nicotine 21 MG PATCH TD SCH (21:05)
[2020-10-26] MEDS: Mirtazapine 15 MG TAB PO SCH (21:05)
[2020-10-26] MEDS ORDERED: Ibuprofen 400 MG TAB PO SCH (21:45)
[2020-10-27] MEDS: metroNIDAZOLE 500 MG in Premix Bag 1 BAG IVPB SCH ×2 (00:51→09:07)
[2020-10-27] MEDS: Ampicillin/Sulbactam 3 GM in Sodium Chloride 0.9% 100 ML IVPB SCH ×4 (04:59→22:30)
[2020-10-27 06:05] LABS: Anion Gap 8 mmol/L (10-20); BUN (Urea Nitrogen) 15 mg/dL (8.4-25.7); Calc. Creatinine Clearance 89 mL/min (70-130); Calcium 7.9 mg/dL (7.8-10.44); Carbon Dioxide 30 mmol/L (23-31); Chloride 105 mmol/L (98-107); Glucose 96 mg/dL (83-110); Potassium 3.2 mmol/L (3.5-5.1); Sodium 140 mmol/L (136-145)
[2020-10-27 06:43] LABS: Hemoglobin 7.6 g/dL (13.5-17.5); Mean Corpuscular HGB CONC 30.6 g/dL (32.0-36.0); Mean Platelet Volume 11.4 fl (7.4-10.4); Platelet Count 174 10x3/uL (150-450); RBC Distribution Width 18.7 % (11.5-14.5); Red Blood Cell (RBC) Count 2.53 10x6/uL (4.32-5.72); White Blood Cell (WBC) Count 7.3 10x3/uL (3.5-10.5)
[2020-10-27] MEDS: Budesonide 0.5 MG/2 ML NEB NEB SCH ×2 (07:00→19:35)
[2020-10-27] MEDS ORDERED: Potassium Chloride 20 MEQ TAB PO SCH (07:45)
[2020-10-27 07:47] LABS: MDiff Complete? YES
[2020-10-27 07:53] LABS: Anisocytosis SLIGHT = 6-15 cells (100X) (0-5/hpf); Band 3 % (5-11); Eosinophils 2 % (0-10); Lymphocytes 6 % (21-51); Monocytes 4 % (0-10); Neutrophil 84 % (42-75); Reactive Lymphocytes 1 % (0-10)
[2020-10-27 07:54] LABS: Platelet Morphology Comment Appears Adequate
[2020-10-27] MEDS: Amiodarone 200 MG TAB PO SCH ×3 (09:06→22:18)
[2020-10-27] MEDS: Digoxin 0.5 MG/2 ML AMP SLOW IVP SCH (09:06)
[2020-10-27] MEDS: guaiFENesin ER 600 MG TAB PO SCH ×2 (09:07→20:48)
[2020-10-27] MEDS: Polyethylene Glycol 3350 17 GM Packet PO SCH (09:07)
[2020-10-27] MEDS: Enoxaparin Sodium 80 MG/0.8 ML SYRINGE SC SCH ×2 (09:07→20:49)
[2020-10-27] MEDS: Famotidine/PF 20 mg/2ml Vial SLOW IVP SCH ×2 (09:08→20:49)
[2020-10-27] MEDS: Melatonin 3 MG TAB PO SCH (20:49)
[2020-10-27] MEDS: Mirtazapine 15 MG TAB PO SCH (20:49)
[2020-10-27] MEDS: Nicotine 21 MG PATCH TD SCH (22:30)
[2020-10-28] MEDS: metroNIDAZOLE 500 MG in Premix Bag 1 BAG IVPB SCH ×4 (01:24→18:30)
[2020-10-28] MEDS: Ampicillin/Sulbactam 3 GM in Sodium Chloride 0.9% 100 ML IVPB SCH ×4 (04:35→22:25)
[2020-10-28] MEDS ORDERED: Ketorolac Tromethamine 30 MG/ML VIAL IVP PRN (07:39)
[2020-10-28] MEDS: Budesonide 0.5 MG/2 ML NEB NEB SCH ×2 (07:59→19:35)
[2020-10-28] MEDS: Amiodarone 200 MG TAB PO SCH ×3 (09:00→22:04)
[2020-10-28] MEDS: Digoxin 0.5 MG/2 ML AMP SLOW IVP SCH (11:04)
[2020-10-28] MEDS: Famotidine/PF 20 mg/2ml Vial SLOW IVP SCH ×2 (11:06→21:15)
[2020-10-28] MEDS: Enoxaparin Sodium 80 MG/0.8 ML SYRINGE SC SCH ×2 (11:06→21:16)
[2020-10-28] MEDS: Polyethylene Glycol 3350 17 GM Packet PO SCH (11:07)
[2020-10-28] MEDS: guaiFENesin ER 600 MG TAB PO SCH ×2 (13:00→21:15)
[2020-10-28] MEDS: Melatonin 3 MG TAB PO SCH (21:15)
[2020-10-28] MEDS: Acetaminophen 325 MG TAB PO PRN (21:15)
[2020-10-28] MEDS: Mirtazapine 15 MG TAB PO SCH (21:15)
[2020-10-28] MEDS: Nicotine 21 MG PATCH TD SCH (21:38)
[2020-10-29] MEDS: metroNIDAZOLE 500 MG in Premix Bag 1 BAG IVPB SCH ×3 (00:56→16:40)
[2020-10-29] MEDS: Ampicillin/Sulbactam 3 GM in Sodium Chloride 0.9% 100 ML IVPB SCH ×4 (04:21→23:22)
[2020-10-29] MEDS: Budesonide 0.5 MG/2 ML NEB NEB SCH ×2 (06:47→19:51)
[2020-10-29] MEDS: Famotidine/PF 20 mg/2ml Vial SLOW IVP SCH ×2 (08:38→22:45)
[2020-10-29] MEDS: Amiodarone 200 MG TAB PO SCH ×3 (08:38→22:00)
[2020-10-29] MEDS: guaiFENesin ER 600 MG TAB PO SCH ×2 (08:38→22:00)
[2020-10-29] MEDS: Enoxaparin Sodium 80 MG/0.8 ML SYRINGE SC SCH ×2 (08:38→22:00)
[2020-10-29] MEDS: Digoxin 0.5 MG/2 ML AMP SLOW IVP SCH (08:38)
[2020-10-29] MEDS: Polyethylene Glycol 3350 17 GM Packet PO SCH ×2 (08:39→08:43)
[2020-10-29 08:50] LABS: Hemoglobin 8.3 g/dL (13.5-17.5); Mean Corpuscular HGB CONC 30.9 g/dL (32.0-36.0); Mean Corpuscular Hemoglobin 31.4 pg (27.0-33.0); Mean Corpuscular Volume 101.9 fl (81.2-95.1); Mean Platelet Volume 10.9 fl (7.4-10.4); Platelet Count 185 10x3/uL (150-450); RBC Distribution Width 19.4 % (11.5-14.5); Red Blood Cell (RBC) Count 2.64 10x6/uL (4.32-5.72); White Blood Cell (WBC) Count 10.5 10x3/uL (3.5-10.5)
[2020-10-29 09:04] LABS: ALT (SGPT) 8 U/L (8-55); AST (SGOT) 7 U/L (5-34); Albumin 1.9 g/dL (3.4-4.8); Alkaline Phosphatase 41 U/L (40-110); Anion Gap 11 mmol/L (10-20); BUN (Urea Nitrogen) 12 mg/dL (8.4-25.7); Bilirubin, Total 0.4 mg/dL (0.2-1.2); Calc. Creatinine Clearance 82 mL/min (70-130); Calcium 8.1 mg/dL (7.8-10.44); Carbon Dioxide 29 mmol/L (23-31); Chloride 108 mmol/L (98-107); Globulin 3.2 g/dL (2.4-3.5); Glucose 106 mg/dL (83-110); Potassium 3.7 mmol/L (3.5-5.1); Protein, Total 5.1 g/dL (5.8-8.1); Sodium 144 mmol/L (136-145)
[2020-10-29 10:04] LABS: MDiff Complete? YES
[2020-10-29] MEDS ORDERED: Ampicillin/Sulbactam 3 GM VIAL ONE (10:52)
[2020-10-29 11:05] LABS: Band 4 % (5-11); Eosinophils 4 % (0-10); Lymphocytes 6 % (21-51); Monocytes 4 % (0-10); Neutrophil 82 % (42-75)
[2020-10-29 11:06] LABS: Platelet Morphology Comment Appears Adequate
[2020-10-29] MEDS ORDERED: diphenhydrAMINE 25 MG CAP PO SCH (21:30)
[2020-10-29] MEDS: Nicotine 21 MG PATCH TD SCH (22:00)
[2020-10-29] MEDS: Melatonin 3 MG TAB PO SCH (22:00)
[2020-10-29] MEDS: Mirtazapine 15 MG TAB PO SCH (22:00)
[2020-10-30] MEDS: metroNIDAZOLE 500 MG in Premix Bag 1 BAG IVPB SCH ×3 (01:23→16:30)
[2020-10-30] MEDS ORDERED: diphenhydrAMINE 25 MG CAP PO SCH (04:45)
[2020-10-30] MEDS: Ampicillin/Sulbactam 3 GM in Sodium Chloride 0.9% 100 ML IVPB SCH ×4 (05:00→23:44)
[2020-10-30 05:47] LABS: Digoxin 1.27 ng/mL (0.8-2.0)
[2020-10-30] MEDS: Budesonide 0.5 MG/2 ML NEB NEB SCH ×2 (06:43→19:15)
[2020-10-30] MEDS: Haloperidol Lactate 5 MG/ML VIAL IM PRN (08:19)
[2020-10-30] MEDS: Digoxin 0.5 MG/2 ML AMP SLOW IVP SCH (08:40)
[2020-10-30] MEDS ORDERED: Amino Acids 4.25 %/Dextrose 5% 2,000 ML IV SCH (09:00)
[2020-10-30] MEDS ORDERED: Amino Acids 4.25 %/Dextrose 5% 2,000 ML BAG IV SCH (09:00)
[2020-10-30] MEDS: Famotidine/PF 20 mg/2ml Vial SLOW IVP SCH ×2 (09:15→21:43)
[2020-10-30] MEDS: Enoxaparin Sodium 80 MG/0.8 ML SYRINGE SC SCH ×2 (10:07→21:46)
[2020-10-30] MEDS: Amiodarone 200 MG TAB PO SCH ×3 (10:07→21:35)
[2020-10-30] MEDS: Polyethylene Glycol 3350 17 GM Packet PO SCH (10:08)
[2020-10-30] MEDS: guaiFENesin ER 600 MG TAB PO SCH ×2 (10:08→21:43)
[2020-10-30] MEDS: Mirtazapine 15 MG TAB PO SCH (21:43)
[2020-10-30] MEDS: Melatonin 3 MG TAB PO SCH (21:43)
[2020-10-30] MEDS: Nicotine 21 MG PATCH TD SCH (21:44)
[2020-10-31] MEDS: metroNIDAZOLE 500 MG in Premix Bag 1 BAG IVPB SCH ×3 (01:10→17:10)
[2020-10-31] MEDS: Famotidine/PF 20 mg/2ml Vial SLOW IVP SCH ×3 (01:14→21:37)
[2020-10-31] MEDS: Ampicillin/Sulbactam 3 GM in Sodium Chloride 0.9% 100 ML IVPB SCH ×4 (03:58→21:37)
[2020-10-31] MEDS: Budesonide 0.5 MG/2 ML NEB NEB SCH ×2 (07:12→19:41)
[2020-10-31] MEDS: Digoxin 0.5 MG/2 ML AMP SLOW IVP SCH (08:15)
[2020-10-31] MEDS: Enoxaparin Sodium 80 MG/0.8 ML SYRINGE SC SCH (08:15)
[2020-10-31] MEDS: guaiFENesin ER 600 MG TAB PO SCH ×2 (08:30→21:38)
[2020-10-31] MEDS ORDERED: Amino Acids 4.25 %/Dextrose 5% 2,000 ML BAG IV SCH (15:13)
[2020-10-31] MEDS: [UNRECOGNIZED DRUG - OTHER] IV SCH (17:09)
[2020-10-31] MEDS: ADMIXTURE FEE IV SCH (17:09)
[2020-10-31] MEDS: LYTES IV SCH (17:09)
[2020-10-31] MEDS: Amiodarone 200 MG TAB PO SCH ×2 (20:06→21:38)
[2020-10-31] MEDS: Polyethylene Glycol 3350 17 GM Packet PO SCH (20:13)
[2020-10-31] MEDS: Nicotine 21 MG PATCH TD SCH (21:38)
[2020-10-31] MEDS: Mirtazapine 15 MG TAB PO SCH (21:38)
[2020-10-31] MEDS: Melatonin 3 MG TAB PO SCH (21:38)
[2020-10-31] MEDS: Haloperidol Lactate 5 MG/ML VIAL IM PRN (23:48)
[2020-11-01] MEDS: metroNIDAZOLE 500 MG in Premix Bag 1 BAG IVPB SCH ×3 (00:01→18:30)
[2020-11-01] MEDS: Ampicillin/Sulbactam 3 GM in Sodium Chloride 0.9% 100 ML IVPB SCH ×4 (04:28→22:06)
[2020-11-01] MEDS: Budesonide 0.5 MG/2 ML NEB NEB SCH ×2 (07:12→23:01)
[2020-11-01] MEDS: Digoxin 0.5 MG/2 ML AMP SLOW IVP SCH (09:33)
[2020-11-01] MEDS: Famotidine/PF 20 mg/2ml Vial SLOW IVP SCH ×2 (09:34→21:39)
[2020-11-01] MEDS: Polyethylene Glycol 3350 17 GM Packet PO SCH (09:39)
[2020-11-01] MEDS: guaiFENesin ER 600 MG TAB PO SCH ×2 (09:39→21:40)
[2020-11-01] MEDS: Amiodarone 200 MG TAB PO SCH ×3 (09:39→21:39)
[2020-11-01] MEDS ORDERED: Ketamine 50 MG/ML (10ML VIAL) ONE (14:55)
[2020-11-01] MEDS ORDERED: Midazolam HCl 2 mg/2 ml Vial ONE (14:57)
[2020-11-01] MEDS ORDERED: Phenylephrine 10 MG/ML VIAL ONE (15:46)
[2020-11-01] MEDS: ADMIXTURE FEE IV SCH (17:25)
[2020-11-01] MEDS: [UNRECOGNIZED DRUG - OTHER] IV SCH (17:25)
[2020-11-01] MEDS: LYTES IV SCH (17:25)
[2020-11-01] MEDS ORDERED: Sodium Chloride 0.9% 1,000 ML IV SCH ×3 (18:00→19:30)
[2020-11-01] MEDS ORDERED: Albumin 25% 25 GM/100 ML BOT IVPB SCH (18:43)
[2020-11-01 19:02] LABS: Actual Bicarbonate (HCO3a) 32.9 mEq/L (22-28); Base Excess (BEa) 1.5 mEq/L (-2.0 to +3.0); CO2 Tension 103.2 mmHg (35.0-45.0); Calcium, Ionized (arterial) 1.26 mmol/L (1.12-1.30); Carboxyhemoglobin (COHb) 0.4 gm% (0.0-3.0); Hemoglobin (Hb) 10.8 g/dL (14.0-18.0); O2 Tension (PaO2), arterial 132.1 mmHg (> 70.0); Potassium - ABG Lab 3.6 mmol/L (3.70-5.30); Puncture Site RRA; pH, Arterial 7.12 (7.35-7.45)
[2020-11-01] MEDS ORDERED: Norepinephrine 8 MG/0.9% NS 250 ML ONE (19:30)
[2020-11-01] MEDS ORDERED: Albumin 25% 100 ML ONE (19:58)
[2020-11-01 20:15] LABS: Lactic Acid 1.3 mmol/L (0.5-2.2)
[2020-11-01] MEDS ORDERED: Dexmedetomidine In 0.9 % NaCl 100 ML ONE (20:18)
[2020-11-01 20:20] LABS: ALT (SGPT) 7 U/L (8-55); AST (SGOT) 6 U/L (5-34); Albumin 1.7 g/dL (3.4-4.8); Alkaline Phosphatase 38 U/L (40-110); Anion Gap 8 mmol/L (10-20); BUN (Urea Nitrogen) 20 mg/dL (8.4-25.7); Bilirubin, Total 0.3 mg/dL (0.2-1.2); Calc. Creatinine Clearance 84 mL/min (70-130); Calcium 8.3 mg/dL (7.8-10.44); Carbon Dioxide 35 mmol/L (23-31); Chloride 111 mmol/L (98-107); Globulin 3.1 g/dL (2.4-3.5); Glucose 132 mg/dL (83-110); Potassium 3.7 mmol/L (3.5-5.1); Protein, Total 4.8 g/dL (5.8-8.1); Sodium 150 mmol/L (136-145)
[2020-11-01 20:24] LABS: Hemoglobin 8.4 g/dL (13.5-17.5); Mean Corpuscular HGB CONC 28.7 g/dL (32.0-36.0); Mean Corpuscular Hemoglobin 30.9 pg (27.0-33.0); Mean Corpuscular Volume 107.7 fl (81.2-95.1); Mean Platelet Volume 11.2 fl (7.4-10.4); Platelet Count 122 10x3/uL (150-450); RBC Distribution Width 19.5 % (11.5-14.5); Red Blood Cell (RBC) Count 2.72 10x6/uL (4.32-5.72); White Blood Cell (WBC) Count 7.8 10x3/uL (3.5-10.5)
[2020-11-01 20:37] LABS: MDiff Complete? YES
[2020-11-01 20:53] LABS: Band 13 % (5-11); Lymphocytes 5 % (21-51); Monocytes 7 % (0-10); Neutrophil 75 % (42-75)
[2020-11-01 20:55] LABS: Dohle Bodies SLIGHT; Hypochromia SLIGHT = 6-15 cells (100X) (0-5/hpf); Macrocytosis SLIGHT = 6-15 cells (100X) (0-5/hpf); Toxic Granulation SLIGHT
[2020-11-01] MEDS ORDERED: Atropine Sulfate 0.4 mg/1 ml Vial IVP PRN (21:16)
[2020-11-01 21:24] LABS: ALV-art Gradient 210.425 mmHg (0-20); Actual Bicarbonate (HCO3a) 35.5 mEq/L (22-28); Base Excess (BEa) 9.6 mEq/L (-2.0 to +3.0); CO2 Tension 58.3 mmHg (35.0-45.0); Calcium, Ionized (arterial) 1.22 mmol/L (1.12-1.30); Carboxyhemoglobin (COHb) 0.6 gm% (0.0-3.0); O2 Tension (PaO2), arterial 429.7 mmHg (> 70.0); Potassium - ABG Lab 3.2 mmol/L (3.70-5.30); Puncture Site RBA
[2020-11-01] MEDS: Dextrose 5% in Water 1,000 ML IV SCH (21:29)
[2020-11-01] MEDS: Nicotine 21 MG PATCH TD SCH (21:40)
[2020-11-01] MEDS: Mirtazapine 15 MG TAB PO SCH (21:40)
[2020-11-01] MEDS: Melatonin 3 MG TAB PO SCH (21:40)
[2020-11-01] MEDS ORDERED: DOPamine 400 MG/D5W 250 ML 250 ML IVPB PRN (21:55)
[2020-11-01] MEDS: Enoxaparin Sodium 80 MG/0.8 ML SYRINGE SC SCH (22:07)
[2020-11-02] MEDS ORDERED: Albumin 25% 25 GM/100 ML BOT IVPB SCH (01:30)
[2020-11-02] MEDS: metroNIDAZOLE 500 MG in Premix Bag 1 BAG IVPB SCH ×3 (02:09→17:30)
[2020-11-02] MEDS: Ampicillin/Sulbactam 3 GM in Sodium Chloride 0.9% 100 ML IVPB SCH ×4 (04:51→20:39)
[2020-11-02] MEDS: Budesonide 0.5 MG/2 ML NEB NEB SCH ×2 (07:55→18:55)
[2020-11-02] MEDS: Digoxin 0.5 MG/2 ML AMP SLOW IVP SCH (08:20)
[2020-11-02] MEDS: Amiodarone 200 MG TAB PO SCH ×3 (08:20→20:38)
[2020-11-02] MEDS: Famotidine/PF 20 mg/2ml Vial SLOW IVP SCH ×2 (08:39→20:38)
[2020-11-02] MEDS: Enoxaparin Sodium 80 MG/0.8 ML SYRINGE SC SCH ×2 (08:39→20:38)
[2020-11-02] MEDS: Polyethylene Glycol 3350 17 GM Packet PO SCH (08:40)
[2020-11-02] MEDS: guaiFENesin ER 600 MG TAB PO SCH ×2 (08:40→20:38)
[2020-11-02] MEDS: Dextrose 5% in Water 1,000 ML IV SCH ×2 (08:40→20:38)
[2020-11-02 13:34] LABS: Actual Bicarbonate (HCO3a) 33.4 mEq/L (22-28); Base Excess (BEa) 6.1 mEq/L (-2.0 to +3.0); CO2 Tension 62.9 mmHg (35.0-45.0); Calcium, Ionized (arterial) 1.22 mmol/L (1.12-1.30); Carboxyhemoglobin (COHb) 0.9 gm% (0.0-3.0); Hemoglobin (Hb) 11.2 g/dL (14.0-18.0); Puncture Site RRA; pH, Arterial 7.34 (7.35-7.45)
[2020-11-02 13:39] LABS: ALV-art Gradient 157.575 mmHg (0-20)
[2020-11-02] MEDS: Dexmedetomidine In 0.9 % NaCl 100 ML IVPB SCH (15:03)
[2020-11-02] MEDS: Norepinephrine 8 MG/0.9% NS 250 ML IVPB SCH (18:43)
[2020-11-02] MEDS: Melatonin 3 MG TAB PO SCH (20:39)
[2020-11-02] MEDS: Mirtazapine 15 MG TAB PO SCH (20:39)
[2020-11-02] MEDS: Nicotine 21 MG PATCH TD SCH (21:19)
[2020-11-03] MEDS: metroNIDAZOLE 500 MG in Premix Bag 1 BAG IVPB SCH ×3 (01:38→17:37)
[2020-11-03] MEDS: Acetaminophen 325 MG TAB PO PRN (02:30)
[2020-11-03] MEDS: Ampicillin/Sulbactam 3 GM in Sodium Chloride 0.9% 100 ML IVPB SCH ×4 (04:15→22:40)
[2020-11-03 04:37] LABS: Anion Gap 9 mmol/L (10-20); BUN (Urea Nitrogen) 10 mg/dL (8.4-25.7); Calc. Creatinine Clearance 111 mL/min (70-130); Calcium 7.8 mg/dL (7.8-10.44); Carbon Dioxide 37 mmol/L (23-31); Chloride 105 mmol/L (98-107); Glucose 125 mg/dL (83-110); Sodium 148 mmol/L (136-145)
[2020-11-03 04:40] LABS: Hemoglobin 7.6 g/dL (13.5-17.5); Mean Corpuscular HGB CONC 30.6 g/dL (32.0-36.0); Mean Corpuscular Hemoglobin 31.3 pg (27.0-33.0); Mean Corpuscular Volume 102.1 fl (81.2-95.1); Mean Platelet Volume 12.7 fl (7.4-10.4); Platelet Count 70 10x3/uL (150-450); RBC Distribution Width 19.4 % (11.5-14.5); Red Blood Cell (RBC) Count 2.43 10x6/uL (4.32-5.72); White Blood Cell (WBC) Count 12.8 10x3/uL (3.5-10.5)
[2020-11-03 04:48] LABS: Potassium 2.6 mmol/L (3.5-5.1)
[2020-11-03] MEDS: Fentanyl 100 MCG/2 ML VIAL SLOW IVP PRN ×3 (05:22→14:30)
[2020-11-03 05:23] LABS: Eosinophils 1 % (0-10); Lymphocytes 6 % (21-51)
[2020-11-03 05:24] LABS: Monocytes 7 % (0-10)
[2020-11-03 05:26] LABS: Band 18 % (5-11); Metamyelocyte 2 % (0-0); Reactive Lymphocytes 3 % (0-10)
[2020-11-03 05:27] LABS: Neutrophil 62 % (42-75)
[2020-11-03 05:28] LABS: Anisocytosis SLIGHT = 6-15 cells (100X) (0-5/hpf); Macrocytosis MODERATE=16-30 cells (100X) (0-5/hpf)
[2020-11-03 05:29] LABS: Dohle Bodies MODERATE; Large Platelets SLIGHT; Platelet Clumps SLIGHT; Toxic Granulation MODERATE; Vacuoles SLIGHT
[2020-11-03 05:31] LABS: Platelet Morphology Comment Appears Decreased
[2020-11-03 05:32] LABS: MDiff Complete? YES; Manual Diff?? YES
[2020-11-03 05:33] LABS: Hypochromia MODERATE=16-30 cells (100X) (0-5/hpf)
[2020-11-03] MEDS: Potassium Chloride 20 MEQ in Premix Bag 1 BAG IVPB SCH ×4 (06:10→14:00)
[2020-11-03] MEDS: Budesonide 0.5 MG/2 ML NEB NEB SCH ×2 (07:22→18:53)
[2020-11-03] MEDS: Enoxaparin Sodium 80 MG/0.8 ML SYRINGE SC SCH ×2 (08:10→21:31)
[2020-11-03] MEDS: guaiFENesin ER 600 MG TAB PO SCH ×2 (09:04→22:38)
[2020-11-03] MEDS: Famotidine/PF 20 mg/2ml Vial SLOW IVP SCH ×2 (09:04→22:39)
[2020-11-03] MEDS: Polyethylene Glycol 3350 17 GM Packet PO SCH (09:04)
[2020-11-03] MEDS: Amiodarone 200 MG TAB PO SCH ×3 (09:04→22:38)
[2020-11-03] MEDS: Digoxin 0.5 MG/2 ML AMP SLOW IVP SCH (09:04)
[2020-11-03 09:22] LABS: Actual Bicarbonate (HCO3a) 35.2 mEq/L (22-28); Base Excess (BEa) 10.1 mEq/L (-2.0 to +3.0); CO2 Tension 50.8 mmHg (35.0-45.0); Calcium, Ionized (arterial) 1.15 mmol/L (1.12-1.30); Carboxyhemoglobin (COHb) 1.4 gm% (0.0-3.0); Hemoglobin (Hb) 9.4 g/dL (14.0-18.0); O2 Tension (PaO2), arterial 68.7 mmHg (> 70.0); Puncture Site RRA; pH, Arterial 7.46 (7.35-7.45)
[2020-11-03] MEDS: Dextrose 5% in Water 1,000 ML IV SCH ×2 (11:28→21:30)
[2020-11-03] MEDS: Norepinephrine 8 MG/0.9% NS 250 ML IVPB SCH (17:37)
[2020-11-03] MEDS: Melatonin 3 MG TAB PO SCH (22:38)
[2020-11-03] MEDS: Nicotine 21 MG PATCH TD SCH (22:39)
[2020-11-03] MEDS: Mirtazapine 15 MG TAB PO SCH (22:39)
[2020-11-04] MEDS: metroNIDAZOLE 500 MG in Premix Bag 1 BAG IVPB SCH ×2 (00:45→08:48)
[2020-11-04] MEDS: Ampicillin/Sulbactam 3 GM in Sodium Chloride 0.9% 100 ML IVPB SCH (05:16)
[2020-11-04] MEDS: Dexmedetomidine In 0.9 % NaCl 100 ML IVPB SCH ×2 (05:51→16:02)
[2020-11-04] MEDS: Norepinephrine 8 MG/0.9% NS 250 ML IVPB SCH ×2 (05:51→21:21)
[2020-11-04] MEDS: Budesonide 0.5 MG/2 ML NEB NEB SCH ×2 (07:15→19:00)
[2020-11-04 08:21] LABS: Anion Gap 10 mmol/L (10-20); BUN (Urea Nitrogen) 11 mg/dL (8.4-25.7); Calc. Creatinine Clearance 102 mL/min (70-130); Calcium 7.8 mg/dL (7.8-10.44); Carbon Dioxide 35 mmol/L (23-31); Chloride 103 mmol/L (98-107); Glucose 157 mg/dL (83-110); Potassium 3.2 mmol/L (3.5-5.1); Sodium 145 mmol/L (136-145)
[2020-11-04 08:29] LABS: Hemoglobin 8.3 g/dL (13.5-17.5); Mean Corpuscular HGB CONC 31.2 g/dL (32.0-36.0); Mean Corpuscular Hemoglobin 31.3 pg (27.0-33.0); Mean Corpuscular Volume 100.4 fl (81.2-95.1); Platelet Count 35 10x3/uL (150-450); RBC Distribution Width 19.2 % (11.5-14.5); Red Blood Cell (RBC) Count 2.65 10x6/uL (4.32-5.72); White Blood Cell (WBC) Count 14.9 10x3/uL (3.5-10.5)
[2020-11-04] MEDS: Amiodarone 200 MG TAB PO SCH ×3 (08:43→20:29)
[2020-11-04] MEDS: Digoxin 0.5 MG/2 ML AMP SLOW IVP SCH (08:43)
[2020-11-04] MEDS: Enoxaparin Sodium 80 MG/0.8 ML SYRINGE SC SCH ×2 (08:45→20:30)
[2020-11-04] MEDS: Famotidine/PF 20 mg/2ml Vial SLOW IVP SCH ×2 (08:45→20:31)
[2020-11-04] MEDS: guaiFENesin ER 600 MG TAB PO SCH ×2 (08:46→20:28)
[2020-11-04] MEDS: Polyethylene Glycol 3350 17 GM Packet PO SCH (08:47)
[2020-11-04 08:59] LABS: MDiff Complete? YES
[2020-11-04 09:41] LABS: Band 8 % (5-11); Lymphocytes 13 % (21-51); Monocytes 8 % (0-10); Neutrophil 71 % (42-75)
[2020-11-04 09:45] LABS: Dohle Bodies SLIGHT; Platelet Morphology Comment Appears Decreased; Toxic Granulation SLIGHT
[2020-11-04] MEDS ORDERED: Meropenem 500 MG in Sodium Chloride 0.9% 100 ML IVPB SCH (12:45)
[2020-11-04] MEDS ORDERED: Potassium Chloride 20 MEQ TAB PO SCH (14:00)
[2020-11-04] MEDS: Meropenem 500 MG in Sodium Chloride 0.9% 100 ML IVPB SCH (17:24)
[2020-11-04] MEDS: Mirtazapine 15 MG TAB PO SCH (20:27)
[2020-11-04] MEDS: Melatonin 3 MG TAB PO SCH (20:28)
[2020-11-04] MEDS: Nicotine 21 MG PATCH TD SCH (21:22)
[2020-11-05] MEDS: Meropenem 500 MG in Sodium Chloride 0.9% 100 ML IVPB SCH ×4 (00:35→17:28)
[2020-11-05] MEDS: Fentanyl 100 MCG/2 ML VIAL SLOW IVP PRN ×2 (02:25→22:00)
[2020-11-05 03:59] LABS: Anion Gap 8 mmol/L (10-20); BUN (Urea Nitrogen) 15 mg/dL (8.4-25.7); Calc. Creatinine Clearance 107 mL/min (70-130); Calcium 7.6 mg/dL (7.8-10.44); Carbon Dioxide 35 mmol/L (23-31); Chloride 103 mmol/L (98-107); Glucose 129 mg/dL (83-110); Potassium 3.2 mmol/L (3.5-5.1); Sodium 143 mmol/L (136-145)
[2020-11-05 04:06] LABS: Hemoglobin 7.8 g/dL (13.5-17.5); Mean Corpuscular HGB CONC 31.1 g/dL (32.0-36.0); Mean Corpuscular Hemoglobin 30.7 pg (27.0-33.0); Mean Corpuscular Volume 98.8 fl (81.2-95.1); Mean Platelet Volume 13.5 fl (7.4-10.4); Platelet Count 37 10x3/uL (150-450); RBC Distribution Width 19.5 % (11.5-14.5); Red Blood Cell (RBC) Count 2.54 10x6/uL (4.32-5.72); White Blood Cell (WBC) Count 12.9 10x3/uL (3.5-10.5)
[2020-11-05] MEDS: Budesonide 0.5 MG/2 ML NEB NEB SCH ×2 (05:07→18:58)
[2020-11-05 05:25] LABS: Band 22 % (5-11); Metamyelocyte 1 % (0-0)
[2020-11-05 05:27] LABS: Monocytes 6 % (0-10)
[2020-11-05 05:28] LABS: Lymphocytes 7 % (21-51)
[2020-11-05 05:29] LABS: Neutrophil 61 % (42-75); Reactive Lymphocytes 3 % (0-10)
[2020-11-05 05:31] LABS: Anisocytosis SLIGHT = 6-15 cells (100X) (0-5/hpf); Hypochromia SLIGHT = 6-15 cells (100X) (0-5/hpf); Macrocytosis SLIGHT = 6-15 cells (100X) (0-5/hpf)
[2020-11-05 05:32] LABS: Dohle Bodies MODERATE; Large Platelets MODERATE; Ovalocytes SLIGHT = 2-5 cells (100X) (0-1/hpf); Toxic Granulation MARKED
[2020-11-05 05:33] LABS: Platelet Morphology Comment Appears Decreased
[2020-11-05 05:34] LABS: MDiff Complete? YES; Manual Diff?? YES
[2020-11-05] MEDS: Potassium Chloride 20 MEQ in Premix Bag 1 BAG IVPB SCH ×4 (06:43→12:17)
[2020-11-05] MEDS: Amiodarone 200 MG TAB PO SCH ×3 (09:30→22:00)
[2020-11-05] MEDS: Digoxin 0.5 MG/2 ML AMP SLOW IVP SCH (09:40)
[2020-11-05] MEDS: Famotidine/PF 20 mg/2ml Vial SLOW IVP SCH ×2 (09:50→23:49)
[2020-11-05] MEDS: guaiFENesin ER 600 MG TAB PO SCH ×2 (09:55→22:00)
[2020-11-05] MEDS: Polyethylene Glycol 3350 17 GM Packet PO SCH (09:55)
[2020-11-05] MEDS: Dexmedetomidine In 0.9 % NaCl 100 ML IVPB SCH ×2 (10:10→17:27)
[2020-11-05] MEDS: Norepinephrine 8 MG/0.9% NS 250 ML IVPB SCH (17:00)
[2020-11-05] MEDS: Mirtazapine 15 MG TAB PO SCH (22:00)
[2020-11-05] MEDS: Nicotine 21 MG PATCH TD SCH (22:00)
[2020-11-05] MEDS: Melatonin 3 MG TAB PO SCH (22:00)
[2020-11-06] MEDS: Meropenem 500 MG in Sodium Chloride 0.9% 100 ML IVPB SCH ×4 (01:00→17:43)
[2020-11-06] MEDS: Acetaminophen 325 MG TAB PO PRN ×2 (01:15→21:03)
[2020-11-06 04:48] LABS: Anion Gap 7 mmol/L (10-20); BUN (Urea Nitrogen) 19 mg/dL (8.4-25.7); Calc. Creatinine Clearance 104 mL/min (70-130); Calcium 7.6 mg/dL (7.8-10.44); Carbon Dioxide 34 mmol/L (23-31); Chloride 103 mmol/L (98-107); Glucose 146 mg/dL (83-110); Potassium 3.8 mmol/L (3.5-5.1); Sodium 140 mmol/L (136-145)
[2020-11-06 04:55] LABS: Hemoglobin 7.1 g/dL (13.5-17.5); Mean Corpuscular HGB CONC 31.4 g/dL (32.0-36.0); Mean Corpuscular Hemoglobin 31.1 pg (27.0-33.0); Mean Corpuscular Volume 99.1 fl (81.2-95.1); Mean Platelet Volume 13.9 fl (7.4-10.4); Platelet Count 43 10x3/uL (150-450); RBC Distribution Width 19.4 % (11.5-14.5); Red Blood Cell (RBC) Count 2.28 10x6/uL (4.32-5.72); White Blood Cell (WBC) Count 12.1 10x3/uL (3.5-10.5)
[2020-11-06 05:26] LABS: Band 20 % (5-11); Lymphocytes 4 % (21-51); Monocytes 5 % (0-10); Reactive Lymphocytes 4 % (0-10)
[2020-11-06 05:29] LABS: Anisocytosis SLIGHT = 6-15 cells (100X) (0-5/hpf); Ovalocytes SLIGHT = 2-5 cells (100X) (0-1/hpf)
[2020-11-06 05:30] LABS: Hypochromia SLIGHT = 6-15 cells (100X) (0-5/hpf)
[2020-11-06 05:31] LABS: Dohle Bodies MODERATE; Large Platelets MODERATE; Platelet Morphology Comment Appears Decreased; Toxic Granulation MARKED
[2020-11-06 05:32] LABS: MDiff Complete? YES; Manual Diff?? YES; Neutrophil 67 % (42-75)
[2020-11-06 05:33] LABS: Macrocytosis SLIGHT = 6-15 cells (100X) (0-5/hpf)
[2020-11-06] MEDS ORDERED: Potassium Chloride 20 MEQ TAB PO SCH (08:00)
[2020-11-06] MEDS: Budesonide 0.5 MG/2 ML NEB NEB SCH ×2 (08:06→18:45)
[2020-11-06] MEDS: Amiodarone 200 MG TAB PO SCH ×3 (09:08→21:03)
[2020-11-06] MEDS: Digoxin 0.5 MG/2 ML AMP SLOW IVP SCH (09:10)
[2020-11-06] MEDS: Famotidine/PF 20 mg/2ml Vial SLOW IVP SCH ×2 (09:11→21:05)
[2020-11-06] MEDS: guaiFENesin ER 600 MG TAB PO SCH ×2 (09:11→21:03)
[2020-11-06] MEDS: Polyethylene Glycol 3350 17 GM Packet PO SCH (09:12)
[2020-11-06] MEDS: Enoxaparin Sodium 80 MG/0.8 ML SYRINGE SC SCH ×2 (12:05→20:43)
[2020-11-06] MEDS ORDERED: Sodium Chloride 0.9% 100 ML ONE (12:14)
[2020-11-06] MEDS: Dexmedetomidine In 0.9 % NaCl 100 ML IVPB SCH (13:30)
[2020-11-06] MEDS: Norepinephrine 8 MG/0.9% NS 250 ML IVPB SCH (13:40)
[2020-11-06] MEDS: Nicotine 21 MG PATCH TD SCH (21:02)
[2020-11-06] MEDS: Mirtazapine 15 MG TAB PO SCH (21:02)
[2020-11-06] MEDS: Melatonin 3 MG TAB PO SCH (21:03)
[2020-11-07] MEDS: Meropenem 500 MG in Sodium Chloride 0.9% 100 ML IVPB SCH ×4 (00:30→17:28)
[2020-11-07 05:34] LABS: Anion Gap 6 mmol/L (10-20); BUN (Urea Nitrogen) 22 mg/dL (8.4-25.7); Calc. Creatinine Clearance 107 mL/min (70-130); Calcium 7.7 mg/dL (7.8-10.44); Carbon Dioxide 35 mmol/L (23-31); Chloride 104 mmol/L (98-107); Glucose 115 mg/dL (83-110); Potassium 4.2 mmol/L (3.5-5.1); Sodium 141 mmol/L (136-145)
[2020-11-07 06:01] LABS: Hemoglobin 6.6 g/dL (13.5-17.5); Mean Corpuscular HGB CONC 31.1 g/dL (32.0-36.0); Mean Corpuscular Volume 99.5 fl (81.2-95.1); Mean Platelet Volume 13.3 fl (7.4-10.4); Platelet Count 62 10x3/uL (150-450); RBC Distribution Width 19.2 % (11.5-14.5); Red Blood Cell (RBC) Count 2.13 10x6/uL (4.32-5.72); White Blood Cell (WBC) Count 11.2 10x3/uL (3.5-10.5)
[2020-11-07] MEDS: Budesonide 0.5 MG/2 ML NEB NEB SCH ×2 (07:00→19:56)
[2020-11-07 07:13] LABS: Band 18 % (5-11); Lymphocytes 4 % (21-51); Monocytes 6 % (0-10); Reactive Lymphocytes 2 % (0-10)
[2020-11-07 07:14] LABS: Anisocytosis SLIGHT = 6-15 cells (100X) (0-5/hpf); Hypochromia MODERATE=16-30 cells (100X) (0-5/hpf); Microcytosis SLIGHT = 6-15 cells (100X) (0-5/hpf); Neutrophil 70 % (42-75)
[2020-11-07 07:15] LABS: Toxic Granulation MODERATE
[2020-11-07 07:16] LABS: Dohle Bodies MODERATE; Platelet Morphology Comment Appears Decreased
[2020-11-07 07:18] LABS: Giant Platelets SLIGHT; Large Platelets MODERATE; MDiff Complete? YES; Manual Diff?? YES
[2020-11-07] MEDS: Polyethylene Glycol 3350 17 GM Packet PO SCH (07:56)
[2020-11-07] MEDS: Enoxaparin Sodium 80 MG/0.8 ML SYRINGE SC SCH ×2 (08:04→20:01)
[2020-11-07] MEDS: Famotidine/PF 20 mg/2ml Vial SLOW IVP SCH ×2 (08:32→20:00)
[2020-11-07] MEDS: guaiFENesin ER 600 MG TAB PO SCH ×2 (08:32→20:00)
[2020-11-07] MEDS: Norepinephrine 8 MG/0.9% NS 250 ML IVPB SCH ×2 (08:32→18:28)
[2020-11-07] MEDS: Digoxin 0.5 MG/2 ML AMP SLOW IVP SCH (08:32)
[2020-11-07] MEDS: Amiodarone 200 MG TAB PO SCH ×3 (08:35→20:01)
[2020-11-07 08:46] VITALS: BMI 25.7
[2020-11-07] MEDS: Acetaminophen 325 MG TAB PO PRN (09:59)
[2020-11-07] MEDS: Dexmedetomidine In 0.9 % NaCl 100 ML IVPB SCH ×2 (13:15→21:28)
[2020-11-07] MEDS: Acetaminophen 650 MG/20.3 ML UDCUP PO PRN ×2 (18:27→21:27)
[2020-11-07] MEDS: Nicotine 21 MG PATCH TD SCH (20:01)
[2020-11-07] MEDS: Melatonin 3 MG TAB PO SCH (20:01)
[2020-11-07] MEDS: Mirtazapine 15 MG TAB PO SCH (20:01)
[2020-11-08] MEDS: Meropenem 500 MG in Sodium Chloride 0.9% 100 ML IVPB SCH ×2 (00:03→06:25)
[2020-11-08 00:50] LABS: Hemoglobin 7.5 g/dL (13.5-17.5); Mean Corpuscular HGB CONC 31.5 g/dL (32.0-36.0); Mean Corpuscular Hemoglobin 30.5 pg (27.0-33.0); Mean Corpuscular Volume 96.7 fl (81.2-95.1); Platelet Count 95 10x3/uL (150-450); RBC Distribution Width 19.2 % (11.5-14.5); Red Blood Cell (RBC) Count 2.46 10x6/uL (4.32-5.72)
[2020-11-08 01:20] LABS: Band 12 % (5-11); Lymphocytes 11 % (21-51); Monocytes 8 % (0-10); Reactive Lymphocytes 5 % (0-10)
[2020-11-08 01:21] LABS: Anisocytosis SLIGHT = 6-15 cells (100X) (0-5/hpf); Dohle Bodies MODERATE; Large Platelets SLIGHT; Microcytosis SLIGHT = 6-15 cells (100X) (0-5/hpf); Neutrophil 64 % (42-75); Platelet Morphology Comment Appears Decreased; Toxic Granulation MODERATE
[2020-11-08 01:22] LABS: Hypochromia MODERATE=16-30 cells (100X) (0-5/hpf); Manual Diff?? YES
[2020-11-08 01:23] LABS: MDiff Complete? YES
[2020-11-08] MEDS: Norepinephrine 8 MG/0.9% NS 250 ML IVPB SCH (02:31)
[2020-11-08 04:21] VITALS: TEMP 98.9
[2020-11-08 04:52] LABS: %Basophils 0.3 % (0.0-2.0); %Eosinophils 0.3 % (0.0-6.0); %Lymphocytes 11.8 % (18.0-47.0); %Monocytes 8.8 % (0.0-10.0); %Neutrophils 77.7 % (40.0-75.0); Hemoglobin 8.3 g/dL (13.5-17.5); Mean Corpuscular HGB CONC 31.2 g/dL (32.0-36.0); Mean Corpuscular Hemoglobin 29.6 pg (27.0-33.0); Mean Platelet Volume 12.4 fl (7.4-10.4); Platelet Count 82 10x3/uL (150-450); RBC Distribution Width 19.6 % (11.5-14.5); White Blood Cell (WBC) Count 11.6 10x3/uL (3.5-10.5)
[2020-11-08 04:56] LABS: Anion Gap 7 mmol/L (10-20); BUN (Urea Nitrogen) 26 mg/dL (8.4-25.7); Calc. Creatinine Clearance 115 mL/min (70-130); Calcium 7.5 mg/dL (7.8-10.44); Carbon Dioxide 33 mmol/L (23-31); Chloride 104 mmol/L (98-107); Glucose 156 mg/dL (83-110); Potassium 3.9 mmol/L (3.5-5.1); Sodium 140 mmol/L (136-145)
[2020-11-08] MEDS: Budesonide 0.5 MG/2 ML NEB NEB SCH (06:56)
[2020-11-08] MEDS: Amiodarone 200 MG TAB PO SCH (07:40)
[2020-11-08] MEDS: Digoxin 0.5 MG/2 ML AMP SLOW IVP SCH (07:41)
[2020-11-08] MEDS: Polyethylene Glycol 3350 17 GM Packet PO SCH (07:42)
[2020-11-08] MEDS: Enoxaparin Sodium 80 MG/0.8 ML SYRINGE SC SCH (07:42)
[2020-11-08] MEDS: guaiFENesin ER 600 MG TAB PO SCH (08:58)
[2020-11-08] MEDS: Famotidine/PF 20 mg/2ml Vial SLOW IVP SCH (08:58)
[2020-11-08] MEDS ORDERED: Lorazepam 2 MG/ML VIAL SLOW IVP PRN (10:10)
[2020-11-08] MEDS ORDERED: Morphine 4 MG/ML VIAL SLOW IVP PRN (10:19)
[2020-11-09 05:37] VITALS: BP 92/51
== END 2020-11-08 17:30 | disposition hospice, home (50) | DRG 853 ==
LOC: CSHERS 14:26 → CSHIMCU 19:52 → CSHTELE 10-25 14:58 → CSHIMCU 11-01 19:38
PROVIDERS: ADMIT Specialist; ATTEND Family Medicine
PROC: 3E053XZ Introduction of Vasopressor into Peripheral Artery, Percutaneous Approach (ICD-10-PCS; principal; 2020-10-05)
PROC: 0QB10ZZ Excision of Sacrum, Open Approach (ICD-10-PCS; 2020-11-01)
PROC: 0DH63UZ Insertion of Feeding Device into Stomach, Percutaneous Approach (ICD-10-PCS; 2020-11-01)
PROC: 0BH17EZ Insertion of Endotracheal Airway into Trachea, Via Natural or Artificial Opening (ICD-10-PCS; 2020-11-01)
PROC: 02HV33Z Insertion of Infusion Device into Superior Vena Cava, Percutaneous Approach (ICD-10-PCS; 2020-11-01)
PROC: 5A1955Z Respiratory Ventilation, Greater than 96 Consecutive Hours (ICD-10-PCS; 2020-11-01)
DX: A41.9 Sepsis, unspecified organism (principal); J18.9 Pneumonia, unspecified organism; L89.154 Pressure ulcer of sacral region, stage 4; J96.01 Acute respiratory failure with hypoxia; G93.41 Metabolic encephalopathy; J69.0 Pneumonitis due to inhalation of food and vomit; I50.31 Acute diastolic (congestive) heart failure; J85.1 Abscess of lung with pneumonia; R65.21 Severe sepsis with septic shock; J95.821 Acute postprocedural respiratory failure; J44.0 Chronic obstructive pulmonary disease with (acute) lower respiratory infection; J44.1 Chronic obstructive pulmonary disease with (acute) exacerbation; E46 Unspecified protein-calorie malnutrition; E87.2 Acidosis; N17.9 Acute kidney failure, unspecified; I11.0 Hypertensive heart disease with heart failure; Z66 Do not resuscitate; Z51.5 Encounter for palliative care; Z20.822 Contact with and (suspected) exposure to COVID-19; F17.210 Nicotine dependence, cigarettes, uncomplicated; E87.6 Hypokalemia; D64.9 Anemia, unspecified; Z78.1 Physical restraint status; L89.621 Pressure ulcer of left heel, stage 1; I48.0 Paroxysmal atrial fibrillation; R62.7 Adult failure to thrive; R13.12 Dysphagia, oropharyngeal phase
CPT/HCPCS: 36415; 36416; 36430; 36600; 70450; 71045; 71046; 71260; 74018; 74230; 80048; 80053; 80162; 80202; 81001; 82607; 82728; 82746; 82805; 83540; 83550; 83605; 83735; 83880; 84145; 84443; 84484; 85025; 85610; 85730; 86480; 86803; 86850; 86900; 86901; 87040; 87070; 87086; 87205; 87389; 87449; 87899; 93005; 93010; 93306; 93970; 94002; 94003; 94640; 94760; 96365; 96367; 96368; 96372; 96375; J0282; J0295; J0456; J0696; J1160; J1630; J1650; J1885; J1940; J2060; J2185; J2250; J2270; J2370; J2543; J2920; J2930; J3010; J3370; J3475; J3480; J3486; J3490; J7050; J7070; J7620; J7626; P9016; P9047; S0028; U0002